=== PATIENT | male | born 1950 | race Caucasian/White ===

== ENCOUNTER 2017-02-10 17:34 | Inpatient (IN) | payer BC ==
[2017-02-10 18:26] LABS: Hematocrit 53.9 % (42.0-52.0); Mean Platelet Volume 7.7 fL (7.4-10.4); Red Blood Cell (RBC) Count 6.06 mill/uL (4.70-6.10); White Blood Cell (WBC) Count 8.6 thou/uL (4.8-10.8)
[2017-02-10 18:43] LABS: ALT (SGPT) 20 U/L (8-55); AST (SGOT) 20 U/L (5-34); Alkaline Phosphatase 114 U/L (40-150); Anion Gap 18 mmol/L (10-20); BUN (Urea Nitrogen) 35 mg/dL (8.4-25.7); Bilirubin, Total 1.3 mg/dL (0.2-1.2); Calc. Creatinine Clearance 0 mL/min (70-130); Calcium 9.3 mg/dL (7.8-10.44); Carbon Dioxide 22 mmol/L (23-31); Chloride 86 mmol/L (98-107); Estimated GFR-MDRD 54; Globulin 3.9 g/dL (2.4-3.5); Lipase 18 U/L (8-78)
[2017-02-10] MEDS ORDERED: Ondansetron HCl/PF 4 MG/2 ML Vial ONE (18:47)
[2017-02-10 18:52] LABS: Band 35 % (5-11); Neutrophil 49 % (42-75); Reactive Lymphocytes 1 % (0-10)
[2017-02-10] MEDS ORDERED: Potassium Chloride 20 MEQ TAB ONE (19:18)
[2017-02-10 19:49] LABS: Bilirubin Small (Negative); Blood, Urine Trace (Negative); Glucose, Urine (Dipstick) 100 mg/dL (Negative); Ketone, Urine Negative (Negative); Nitrite Negative (Negative); Protein, Urine (Dipstick) 100 mg/dL (Neg-Trace); Urobilinogen 0.2 mg/dL (0.2-1.0)
[2017-02-10 19:52] LABS: Bacteria/HPF None Seen HPF (None Seen)
[2017-02-10 19:55] LABS: Hyaline Casts/LPF 0-3 HYALINE CAST LPF (0-3 Hyaline); Renal Epithelial None Seen HPF (0-3); Transitional Epithelial NONE SEEN HPF (0-3)
--- NOTE | 2017-02-10 21:43 | CT ---
CT ABDOMEN AND PELVIS WITHOUT CONTRAST STONE PROTOCOL 02/10/17 HISTORY: Pain. COMPARISON: None. FINDINGS: There is some peripheral reticular scarring in the lung bases. Calcified granuloma is also present in the right lung base. No significant pericardial effusion. The appendix is visualized and is normal. IMPRESSION: There is mild submucosal fatty infiltration of the ascending colon. There was mild hyperemia of the t ransverse colon. Faint inflammatory stranding around the ascending colon. There were no dilated large or small bowel. There is increased number of mesenteric lymph nodes. There was no hydronephrosis. Th ere is a punctate calculus in the superior pole left kidney. This is nonobstructive. Calcified granuloma is present in the spleen. Liver, pancreas, and gallbladder are unremarkable given noncontrast evaluation. No severe facet arthropathy L4-5 and L5-S1. IMPRESSION: 1. Nonobstructive superior left renal calculus which is punctate. 2. Findings suggestive of chronic inflammatory bowel disease including submucosal fatty infiltra tion of the cecum and ascending colon as well as hyperemia of the transverse colon and mild inflammat ory stranding of the ascending colon. Active colitis is likely. 3. Likely reactive numerous mesenteric lymph nodes. 4. Normal appendix. POS: H
[2017-02-10] MEDS ORDERED: Ciprofloxacin 500 MG TAB ONE (23:02)
[2017-02-10] MEDS ORDERED: metroNIDAZOLE 250 MG TAB ONE (23:02)
[2017-02-11] MEDS ORDERED: Ondansetron HCl/PF 4 MG/2 ML Vial IVP PRN (00:13)
[2017-02-11] MEDS ORDERED: Ondansetron ODT 4 MG TAB SL PRN (00:13)
[2017-02-11] MEDS ORDERED: Dicyclomine 20 MG TAB PO PRN (00:13)
[2017-02-11] MEDS ORDERED: Potassium Chloride 20 MEQ TAB PO SCH (00:30)
[2017-02-11] MEDS ORDERED: HYDROcodone/Acetaminophen 5/325 mg Tablet PO PRN (00:56)
[2017-02-11] MEDS ORDERED: Acetaminophen 325 MG TAB PO PRN (00:56)
--- NOTE | 2017-02-11 00:56 | PDOC.EVN ---
Event Note - Event Note Event Note: [id number] H&P Dictated 1. Acute colitis 2. Hyponatremia 3. HYPOKALEMIA PLAN: SEE ORDERS
[2017-02-11] MEDS ORDERED: Sodium Chloride 0.9% 1,000 ML IV SCH (01:00)
[2017-02-11] MEDS: NS 0.9% w/ 20 MEQ KCL 1,000 ML IV SCH ×4 (01:13→23:40)
[2017-02-11] MEDS: Meropenem 1 GM in Sodium Chloride 0.9% 100 ML IVPB SCH ×3 (04:31→21:03)
[2017-02-11 05:23] LABS: Anion Gap 12 mmol/L (10-20); BUN (Urea Nitrogen) 28 mg/dL (8.4-25.7); Calc. Creatinine Clearance 34 mL/min (70-130); Calcium 8.4 mg/dL (7.8-10.44); Carbon Dioxide 25 mmol/L (23-31); Chloride 93 mmol/L (98-107); Estimated GFR-MDRD 59
[2017-02-11 06:06] LABS: Band 25 % (5-11); Hematocrit 49.5 % (42.0-52.0); Neutrophil 39 % (42-75); Red Blood Cell (RBC) Count 5.53 mill/uL (4.70-6.10)
[2017-02-11] MEDS: Heparin 5,000 UNITS/ML VIAL SC SCH ×3 (08:39→20:57)
[2017-02-11] MEDS: Famotidine 20 MG TAB PO SCH ×2 (08:39→20:57)
[2017-02-11] MEDS ORDERED: FLU VACC QS2017-18 36 mo. & older 0.5 ML SYRINGE IM ONE (09:00)
[2017-02-11 09:17] LABS: Anion Gap 12 mmol/L (10-20); BUN (Urea Nitrogen) 25 mg/dL (8.4-25.7); Calc. Creatinine Clearance 83 mL/min (70-130); Calcium 8.7 mg/dL (7.8-10.44); Carbon Dioxide 26 mmol/L (23-31); Chloride 94 mmol/L (98-107); Estimated GFR-MDRD 69
--- NOTE | 2017-02-11 12:55 | HP ---
DATE OF ADMISSION: 02/11/2017 CHIEF COMPLAINT: Abdominal pain, nausea, vomiting, diarrhea. HISTORY OF PRESENT ILLNESS: The patient is a 66-year-old male with past medical history of GERD, now came to the ER with nausea, vomiting, diarrhea. Symptoms started approximately a few days back sinc e Thursday. The pain is in mainly lower abdomen, a crampy kind of pain associated with nausea, vomitin g, and diarrhea numerous episodes. Denies any blood in the stool. Denies any black stool. Denies f ever, denies any chills, denies any chest pain, denies any trouble breathing. Denies any dizziness, denies lightheadedness. PAST MEDICAL HISTORY: As per HPI. PAST SURGICAL HISTORY: None. SOCIAL HISTORY: Positive for smoking. Occasional alcohol use and drugs. FAMILY HISTORY: Denies any heart problems. MEDICATIONS: Reviewed. ALLERGIES: No known drug allergies. REVIEW OF SYSTEMS: Constitutional: Denies any fever, denies any chills. Eyes: Denies vision probl ems. Ears: Denies hearing loss. Neck: Denies any neck pain. Cardiovascular system: Denies any c hest pain. Respiratory system: Denies any cough. Denies any sputum production. Gastrointestinal: Positive for abdominal pain, nausea, vomiting, and diarrhea. Cranial nerve system: Denies syncope. Psychiatric: Denies anxiety. Integumentary: Denies any rash. Musculoskeletal: Denies any joint deformities. All other review of systems are reviewed and are negative. PHYSICAL EXAMINATION: VITAL SIGNS: At the time of H&P performed, blood pressure is 120/70, afebrile, pulse ox 95%, tempera ture 97.7. GENERAL: The patient appears comfortable. HEENT: Pupils are equal, round, and reactive. Anterior nares normal. Nose, normal. Ears, normal. Teeth, intact. Tongue is moist. NECK: Supple, no JVD. CARDIOVASCULAR SYSTEM: S1, S2 present. Regular rate and rhythm. No murmurs, no rubs, no gallops. RESPIRATORY SYSTEM: No wheezing, no rhonchi. Breath sounds present bilaterally. GASTROINTESTINAL: Tender to palpate lower abdomen. No guarding, no rebound tenderness. Soft, diste nded. CRANIAL NERVE SYSTEM: Awake, follows commands. Strength intact. Sensory intact. PSYCHIATRIC: Mood is appropriate at this time.. MUSCULOSKELETAL: No edema. INTEGUMENTARY: No rashes seen. LABORATORY DATA: At the time of H&P performed, sodium 123, potassium 2.7, chloride 86, CO2 of 22, BU N of 35, creatinine 1.34. White count 8.6, hemoglobin 18.3, platelet count is 259. UA is 7-10 rbc's , 7-10 wbc's. IMAGING: CT abdomen and pelvis done in the ER, positive for nonobstructing superior left renal calcu sotero finding suggestive of chronic inflammatory bowel disease, active colitis is less likely. ASSESSMENT AND PLAN: The patient is 66-year-old male, 1. Acute colitis. Plan to consult GI to evaluate the patient. Plan to keep the patient on IV Cipro and Flagyl. We will monitor patient closely. 2. Hyponatremia secondary to hypovolemia. Gentle IV fluids, repeat BMP in 6 hours. 3. Hypokalemia. Replace potassium. 4. Pain p.r.n. pain medications. 5. Gastroesophageal reflux disease, PPI. 6. Nausea, vomiting, diarrhea. We will check stool for clostridium difficile. Continue patient on p.r.n. antiemetics and continue IV fluids. The case was discussed in detail with the patient.
--- NOTE | 2017-02-11 14:13 | PDOC.EVN ---
Event Note - Event Note Event Note: pt seen and [id number]. chart reviewed. admitted earlier today for AP and diarrhea with colitis type findings on CT and multiple electrolyte abnormalities. feels much better now. still having loose stools. CTA b/l. RRR. abdomen is non tender. C.Diff negative.CT scan findings noted.? chronic IBD.Pt gives no history or FH of same. On empiric ABX. Cont same .GI recs requested. follow lytes closely and replace as needed.
[2017-02-11 16:25] LABS: Anion Gap 14 mmol/L (10-20); BUN (Urea Nitrogen) 22 mg/dL (8.4-25.7); Calc. Creatinine Clearance 90 mL/min (70-130); Calcium 8.8 mg/dL (7.8-10.44); Carbon Dioxide 24 mmol/L (23-31); Chloride 95 mmol/L (98-107); Estimated GFR-MDRD 76
--- NOTE | 2017-02-12 04:58 | CON ---
DATE OF CONSULTATION: 02/11/2017 CHIEF COMPLAINT: Diarrhea. HISTORY OF PRESENT ILLNESS: Mr. Shen is a 66-year-old man who had onset of liquidy diarrhea on following Thanksgiving. This gradually worsened and he had diarrhea episodes every hour over the n ext couple of days. He ultimately developed nausea and vomiting and then came on into the emergency room for further care. He was given antibiotics. A CT scan was performed that showed some inflammat ory changes around the colon. He is feeling much better today. His nausea has resolved. The diarrh ea is still persistent, but he is having no abdominal pain. His son and [id number] also got sic k who ate the same meal as did his lady friend. PAST MEDICAL HISTORY: Gastroesophageal reflux. PAST SURGICAL HISTORY: Negative. FAMILY HISTORY: Negative for GI malignancies. SOCIAL HISTORY: He smokes, occasional alcohol, no drugs. ALLERGIES: No known drug allergies. MEDICATIONS PRIOR TO ADMISSION: None. CURRENT INPATIENT MEDICATIONS: Meropenem, famotidine. REVIEW OF SYSTEMS: Negative x10 systems reviewed except as stated in the history of present illness. PHYSICAL EXAMINATION: VITAL SIGNS: Temperature 98.0, pulse 78, blood pressure 126/76. GENERAL: He is in no acute distress, alert, and oriented x3. HEENT: Eyes have no scleral icterus. Oropharynx is clear, without lesions. NECK: No cervical or supraclavicular lymphadenopathy. LUNGS: Clear to auscultation bilaterally. HEART: Regular rate and rhythm. ABDOMEN: Soft, nontender, nondistended, bowel sounds are present, no hepatomegaly. EXTREMITIES: No lower extremity edema. LABORATORY DATA: White blood cell count is 9.0, hemoglobin 16.5, platelets 239, hemoglobin on presen tation was 18.3 prior to hydration. Sodium 129, potassium 3.5, chloride 95, CO2 is 24, BUN 22, creat inine 0.99 down from 1.34 on presentation, albumin 4.1, lipase 18. Bilirubin on presentation was 1.3 , AST 20, ALT 20, alkaline phosphatase 114. IMPRESSION: Acute infectious colitis. He has already been on meropenem and is several days into the course of the infection and therefore, stool studies are not likely to come back positive. We shoul d check a culture for completeness sake. This could be Campylobacter, Shigella, salmonella, or E. co li versus other. RECOMMENDATIONS: 1. Complete a 5-day course of antibiotics and then they can be discontinued. 2. Advanced to solid diet tomorrow. 3. Check stool studies for culture and ova and parasite. 4. Follow up in GI clinic in a month. PLAN: Colonoscopy around 6 weeks after the acute infectious processes healed. The colonoscopy will be for routine screening.
[2017-02-12 05:05] LABS: Anion Gap 11 mmol/L (10-20); BUN (Urea Nitrogen) 15 mg/dL (8.4-25.7); Calc. Creatinine Clearance 105 mL/min (70-130); Calcium 8.2 mg/dL (7.8-10.44); Carbon Dioxide 24 mmol/L (23-31); Chloride 99 mmol/L (98-107); Estimated GFR-MDRD Greater than 90
[2017-02-12] MEDS: Meropenem 1 GM in Sodium Chloride 0.9% 100 ML IVPB SCH (05:58)
[2017-02-12] MEDS ORDERED: Dextrose 5% in Water 1,000 ML IV PRN (07:20)
[2017-02-12] MEDS ORDERED: HumaLOG 300 UNITS/3 ML VIAL SC PRN ×2 (07:20)
[2017-02-12] MEDS ORDERED: Dextrose 50% Abboject 50 ML SYRINGE SLOW IVP PRN (07:20)
[2017-02-12 07:41] LABS: Hemoglobin A1c 7.6 % (4.0-6.0)
[2017-02-12 07:46] LABS: Magnesium 2.3 mg/dL (1.6-2.6)
[2017-02-12 07:49] LABS: Phosphorus 1.4 mg/dL (2.3-4.7)
[2017-02-12] MEDS: Famotidine 20 MG TAB PO SCH ×2 (08:55→20:28)
[2017-02-12] MEDS: Heparin 5,000 UNITS/ML VIAL SC SCH ×3 (08:55→20:28)
--- NOTE | 2017-02-12 09:26 | PDOC.PN ---
- Subjective Encounter Start Date: 02/12/17 Encounter Start Time: 07:30 -: old records requested/rev pt still has diarrhoea, no fever, no abdominal pain Patient seen and examined. No new complaints. No overnight events - Objective Resuscitation Status: Resuscitation Status FULL:Full Resuscitation MAR Reviewed: Yes Vital Signs & Weight: Vital Signs (12 hours) Temp Pulse Resp BP Pulse Ox 02/12/17 04:00 98.0 F 69 18 120/64 98 Weight Admit Weight 186 lb 6.4 oz Weight 188 lb 8 oz I&O: 02/11/17 02/12/17 02/13/17 06:59 06:59 06:59 Intake Total 765 1820 Balance 765 1820 Result Diagrams: 02/11/17 04:55 02/12/17 04:25 EKG Reviewed by me: Yes Phys Exam - Physical Examination Constitutional: NAD HEENT: PERRLA, moist MMs, sclera anicteric Neck: no JVD, supple Respiratory: no wheezing, no rales, no rhonchi Cardiovascular: RRR, no significant murmur, no rub Gastrointestinal: soft, non-tender, no distention, positive bowel sounds Musculoskeletal: no edema, pulses present Neurological: non-focal, normal sensation Lymphatic: no nodes Psychiatric: normal affect Skin: no rash, normal turgor Dx/Plan (1) Acute kidney failure Status: Acute (2) Bandemia Code(s): D72.825 - BANDEMIA Status: Acute (3) Colitis, infectious Code(s): A09 - INFECTIOUS GASTROENTERITIS AND COLITIS, UNSPECIFIED Status: Acute (4) Dehydration Code(s): E86.0 - DEHYDRATION Status: Acute (5) Hypokalemia Code(s): E87.6 - HYPOKALEMIA Status: Acute (6) Hyponatremia Code(s): E87.1 - HYPO-OSMOLALITY AND HYPONATREMIA Status: Acute (7) Hypophosphatemia Code(s): E83.39 - OTHER DISORDERS OF PHOSPHORUS METABOLISM Status: Acute - Plan cont current plan of care, continue antibiotics * repeat labs tomorrow * replace potassium phosphate * continue selected home medication. * medication reviewed as below * symptomatic treatment * start IV flagyl. * change IVF to NS with KCL * DC Meropenam and change to levaquin Review of Systems - Review of Systems Constitutional: negative: Fever, Chills, Sweats, Weakness, Malaise, Other Eyes: negative: Pain, Vision Change, Conjunctivae Inflammation, Eyelid Inflammation, Redness, Other ENT: negative: Ear Pain, Ear Discharge, Nose Pain, Nose Discharge, Nose Congestion, Mouth Pain, Mouth Swelling, Throat Pain, Throat Swelling, Other Respiratory: negative: Cough, Dry, Shortness of Breath, Hemoptysis, SOB with Excertion, Pleuritic Pain, Sputum, Wheezing Cardiovascular: negative: Chest Pain, Palpitations, Orthopnea, Paroxysmal Noc. Dyspnea, Edema, Light Headedness, Other Gastrointestinal: Abdominal Pain, Diarrhea. negative: Nausea, Vomiting, Constipation, Melena, Hematochezia, Other Genitourinary: negative: Dysuria, Frequency, Incontinence, Hematuria, Retention , Other Musculoskeletal: negative: Neck Pain, Shoulder Pain, Arm Pain, Back Pain, Hand Pain, Leg Pain, Foot Pain, Other Skin: negative: Rash, Lesions, Francisco, Bruising, Other - Medications/Allergies Allergies/Adverse Reactions: Allergies Allergy/AdvReac Type Severity Reaction Status Date / Time No Known Drug Allergies Allergy Verified 02/11/17 03:57 Medications: Current Medications Acetaminophen (Tylenol) 650 mg PO Q4H PRN PRN Reason: Headache/Fever or Pain Hydrocodone Bitart/Acetaminophen ([place] 5/325) 1 tab PO Q4H PRN PRN Reason: Moderate Pain (4-6) Dextrose/Water (Dextrose 50%) 25 gm SLOW IVP PRN PRN PRN Reason: Hypoglycemia Famotidine (Pepcid) 20 mg PO BID [facility] Last Admin: 02/12/17 08:55 Dose: 20 mg Glucagon (Glucagon) 1 mg IM PRN PRN PRN Reason: Hypoglycemia Heparin Sodium (Porcine) (Heparin) 5,000 units SC TID [facility] Last Admin: 02/12/17 08:55 Dose: 5,000 units Potassium Chloride/Sodium Chloride (Ns 0.9% W/ 20 Meq Kcl) 1,000 mls @ 100 mls/ hr IV .Q10H [facility] Stop: 02/15/17 10:35 Last Admin: 02/11/17 23:40 Dose: 1,000 mls Meropenem 1 gm/ Sodium (Chloride) 100 mls @ 200 mls/hr IVPB Q8HR [facility] Last Admin: 02/12/17 05:58 Dose: 100 mls Dextrose/Water (D5w) 1,000 mls @ 0 mls/hr IV .Q0M PRN; As Directed PRN Reason: Hypoglycemia Insulin Human Lispro (Humalog) 0 units SC .MODERATE SLIDING SC PRN PRN Reason: Moderate Correctional Scale Insulin Human Lispro (Humalog) 0 units SC .BEDTIME SLIDING SC PRN PRN Reason: Bedtime Correctional Scale Ondansetron HCl (Zofran) 4 mg IVP Q6H PRN PRN Reason: Nausea/Vomiting Stop: 02/16/17 10:35 Sodium Chloride (Flush - Normal Saline) 10 ml IVF Q12HR KEON Last Admin: 02/12/17 08:55 Dose: 10 ml Sodium Chloride (Flush - Normal Saline) 10 ml IVF PRN PRN PRN Reason: Saline Flush
[2017-02-12] MEDS ORDERED: Potassium Phosphate 30 MMOL in Sodium Chloride 0.9% 500 ML IVPB SCH (10:00)
[2017-02-12] MEDS: NS 0.9% w/ 20 MEQ KCL 1,000 ML/1,000 ML BAG IV SCH ×2 (11:18→20:29)
[2017-02-12] MEDS: K-Phos Neutral 250 MG TAB PO SCH ×2 (15:13→18:01)
--- NOTE | 2017-02-12 17:17 | PRG ---
DATE OF SERVICE: 02/12/2017 SUBJECTIVE: He feels better. He has no abdominal pain. He is tolerating a solid diet. He is still having frequent diarrhea. OBJECTIVE: VITAL SIGNS: Temperature 98.6, pulse 69, blood pressure 110/57. GENERAL: He is in no acute distress, alert and oriented x3. LUNGS: Clear to auscultation bilaterally. HEART: Regular rate and rhythm. ABDOMEN: Soft, nontender, nondistended. Bowel sounds are present. EXTREMITIES: No lower extremity edema. IMPRESSION: Acute infectious colitis. Stool studies are negative; however, this is expected given t hat they were drawn several days after the onset of symptoms and after several days of antibiotics. The diarrhea now might be worsened by the antibiotics. He can complete a 5-day course of antibiotics and then discontinue them. Now, he is tolerating oral diet and can be transitioned to ciprofloxacin 500 mg twice daily. RECOMMENDATIONS: 1. Transitioned to oral antibiotics to complete a 5-day course. 2. Add Probiotic daily. 3. Anticipate discharge home tomorrow. 4. Follow up in GI clinic in a month. He will need colonoscopy at that time for screening and follo wup. I will sign off for now. Please call if GI can help.
[2017-02-12] MEDS: Loperamide HCl 2 MG CAP PO PRN (18:03)
[2017-02-12 21:42] VITALS: BMI 27.7
[2017-02-13] MEDS: Loperamide HCl 2 MG CAP PO PRN (00:10)
[2017-02-13 05:27] LABS: Band 6 % (5-11); Hematocrit 47.8 % (42.0-52.0); Mean Platelet Volume 7.3 fL (7.4-10.4); Metamyelocyte 1 % (0-0); Myelocyte 1 % (0-0); Neutrophil 48 % (42-75); Nucleated RBC 1 % (0); Red Blood Cell (RBC) Count 5.32 mill/uL (4.70-6.10); White Blood Cell (WBC) Count 9.7 thou/uL (4.8-10.8)
[2017-02-13 05:40] LABS: ALT (SGPT) 40 U/L (8-55); AST (SGOT) 45 U/L (5-34); Alkaline Phosphatase 109 U/L (40-150); Anion Gap 10 mmol/L (10-20); BUN (Urea Nitrogen) 11 mg/dL (8.4-25.7); Bilirubin, Total 0.8 mg/dL (0.2-1.2); Calc. Creatinine Clearance 111 mL/min (70-130); Calcium 8.5 mg/dL (7.8-10.44); Carbon Dioxide 24 mmol/L (23-31); Chloride 99 mmol/L (98-107); Estimated GFR-MDRD Greater than 90; Globulin 2.9 g/dL (2.4-3.5); Protein, Total 6.4 g/dL (5.8-8.1)
[2017-02-13] MEDS ORDERED: Floranex Packet PO SCH (09:00)
[2017-02-13] MEDS ORDERED: Potassium Chloride 20 MEQ TAB PO SCH (09:30)
[2017-02-13] MEDS: Famotidine 20 MG TAB PO SCH (09:54)
[2017-02-13] MEDS: Heparin 5,000 UNITS/ML VIAL SC SCH (09:54)
[2017-02-13 11:02] VITALS: BP 124/71; TEMP 98.5
--- NOTE | 2017-02-13 12:36 | DIS ---
PRIMARY CARE PROVIDER: Dr. Nghia Salvador. DATE OF ADMISSION: 02/11/2017 DATE OF DISCHARGE: 02/13/2017 DISCHARGE DIAGNOSES: 1. Acute colitis, likely infectious. 2. Hypokalemia. 3. Hypophosphatemia. 4. Hyponatremia. CONDITION OF PATIENT AT THE TIME OF DISCHARGE: Stable. I assessed Mr. Shen on the day of discharge. He denies any chest pain or shortness of breath. Vital signs are stable. S1 and S2 are heard, reg ular. Lungs are clear to auscultation bilaterally. CONSULTATIONS DURING THIS HOSPITALIZATION: Dr. Farhat Dawn, Gastroenterology. DISCHARGE MEDICATIONS: Floranex 1 g daily for 5 days, Levaquin 500 mg daily for 3 more days, Imodium p.r.n., Phos-NaK 1 packet every 12 hours for 3 more days. HOSPITAL COURSE: Mr. Shen is a pleasant 66-year-old gentleman, who was admitted to [facility] on 02/10/2017 for diarrhea of a few days' duration. CT scan of the abdomen and pelv is done on 02/10/2017, showed a nonobstructive superior left renal calculus and findings suggestive o f chronic inflammatory bowel disease including submucosal fatty infiltration of the cecum and ascendi ng colon as well as hyperemia of the transverse colon and mild inflammatory stranding of the ascendin g colon, normal appendix and likely reactive numerous mesenteric lymph nodes. He was seen by Gastroe nterology Service. He was treated with antibiotics for possible infectious colitis. Clostridium dif ficile screen was negative. Rapid parasite stool screen was negative for Giardia and cryptosporidium . Campylobacter antigen and test for E. coli, Shiga toxin 1 and 2 were negative. Preliminary stool culture did not show growth. He is advised to follow up with his primary care provider for final rep ort. He was found to be hyponatremic, hypokalemic and hypophosphatemic during this hospitalization. On the day of discharge, his sodium of 130, potassium 3.3, creatinine 0.81, phosphorous 1.6, AST 45, ALT 40, normal alkaline phosphatase, normal total bilirubin, unremarkable comprehensive metabolic pro file. He is in the process of switching insurances. He will reportedly see Dr. Nghia Salvador as an outpatien t. His diarrhea resolved on the day of discharge. Many thanks for allowing me to participate in your patient's care. Please feel free to contact me wi th any questions or concerns. He was also started on probiotics during this hospitalization. DISCHARGE DESTINATION: Home. TOTAL AMOUNT OF TIME SPENT COORDINATING THIS DISCHARGE: 33 minutes.
[2017-02-13] MEDS: NS 0.9% w/ 20 MEQ KCL 1,000 ML/1,000 ML BAG IV SCH (13:15)
== END 2017-02-13 13:39 | disposition home or self-care (01) | DRG 392 ==
LOC: ERS 17:34 → 2NO 02-11 00:07
PROVIDERS: ADMIT Internal Medicine; ATTEND Internal Medicine
DX: A09 Infectious gastroenteritis and colitis, unspecified (principal); N17.9 Acute kidney failure, unspecified; E87.1 Hypo-osmolality and hyponatremia; E83.39 Other disorders of phosphorus metabolism; E87.6 Hypokalemia; K21.9 Gastro-esophageal reflux disease without esophagitis; D72.825 Bandemia
CPT/HCPCS: 36415; 36416; 74176; 80048; 80053; 81003; 81015; 83036; 83690; 83735; 84100; 85025; 87015; 87045; 87046; 87324; 87328; 87329; 87449; 87899; 93005; A4216; J1644; J1956; J2185; J2405; J7050

== ENCOUNTER 2017-03-16 02:53 | Inpatient (IN) | payer MEDICARE ==
[2017-03-16] MEDS ORDERED: Nitroglycerin 2% Ointment 1 INCH/1 GM Packet ONE (03:14)
[2017-03-16 03:23] LABS: #Basophils 0.1 thou/uL (0.0-0.2); #Eosinphils 0.1 thou/uL (0.0-0.7); #Lymphocytes 2.1 thou/uL (1.20-3.40); #Neutrophils 8.5 thou/uL (1.40-6.50); %Basophils 0.5 % (0.0-1.0); %Eosinophils 0.9 % (0.0-10.0); %Monocytes 8.2 % (0.0-10.0); %Neutrophils 72.4 % (42.0-75.0); Hemoglobin 16.4 g/dL (14.0-18.0); Mean Corpuscular HGB CONC 32.9 g/dL (32.0-36.0); Mean Corpuscular Hemoglobin 30.4 pg (27.0-31.0); Mean Corpuscular Volume 92.4 fl (80.0-94.0); Mean Platelet Volume 7.3 fL (7.4-10.4); Platelet Count 292 thou/uL (130-400); RBC Distribution Width 13.6 % (11.5-14.5); Red Blood Cell (RBC) Count 5.39 mill/uL (4.70-6.10); White Blood Cell (WBC) Count 11.7 thou/uL (4.8-10.8)
[2017-03-16 03:41] LABS: ALT (SGPT) 14 U/L (8-55); AST (SGOT) 18 U/L (5-34); Albumin 4.2 g/dL (3.4-4.8); Alkaline Phosphatase 102 U/L (40-150); Anion Gap 16 mmol/L (10-20); BUN (Urea Nitrogen) 13 mg/dL (8.4-25.7); Bilirubin, Total 0.3 mg/dL (0.2-1.2); CK (CPK) 160 U/L (30-200); Calc. Creatinine Clearance 0 mL/min (70-130); Calcium 9.9 mg/dL (7.8-10.44); Carbon Dioxide 24 mmol/L (23-31); Chloride 100 mmol/L (98-107); Estimated GFR-MDRD 71; Globulin 3.3 g/dL (2.4-3.5); Glucose 270 mg/dL (80-115); Magnesium 2.4 mg/dL (1.6-2.6); Potassium 4.3 mmol/L (3.5-5.1); Protein, Total 7.5 g/dL (5.8-8.1); Sodium 136 mmol/L (136-145)
[2017-03-16 03:44] LABS: CKMB 3.8 ng/mL (0-6.6); Troponin I 0.041 ng/mL (< 0.028)
[2017-03-16] MEDS ORDERED: Enoxaparin Sodium 80 MG/0.8 ML SYRINGE ONE (05:17)
[2017-03-16] MEDS ORDERED: Ondansetron ODT 4 MG TAB SL PRN (06:10)
[2017-03-16] MEDS ORDERED: Ondansetron HCl/PF 4 MG/2 ML Vial IVP PRN (06:10)
[2017-03-16] MEDS ORDERED: Acetaminophen 325 MG TAB PO PRN (06:10)
[2017-03-16 06:19] VITALS: BMI 29.0
[2017-03-16 08:02] LABS: Troponin I 1.224 ng/mL (< 0.028)
[2017-03-16] MEDS ORDERED: HumaLOG 300 UNITS/3 ML VIAL SC PRN (10:03)
[2017-03-16] MEDS ORDERED: Dextrose 50% Abboject 50 ML SYRINGE IVP PRN (10:03)
[2017-03-16] MEDS ORDERED: Dextrose 5% in Water 1,000 ML IV PRN ×2 (10:03→10:21)
[2017-03-16 10:05] LABS: Hemoglobin A1c 7.2 % (4.0-6.0)
[2017-03-16] MEDS ORDERED: Milk Of Magnesia 30 ML UDCUP PO PRN (10:21)
[2017-03-16] MEDS ORDERED: Dextrose 50% Abboject 50 ML SYRINGE SLOW IVP PRN (10:21)
[2017-03-16] MEDS ORDERED: Loperamide HCl 2 MG CAP PO PRN (10:21)
[2017-03-16] MEDS ORDERED: HYDROcodone/Acetaminophen 7.5/325 mg Tablet PO PRN (10:21)
[2017-03-16] MEDS ORDERED: Guaifenesin DM 100-10/5 ML UDCUP PO PRN (10:21)
[2017-03-16] MEDS ORDERED: hydrALAZINE 20 MG/ML VIAL SLOW IVP PRN (10:25)
[2017-03-16] MEDS ORDERED: Labetalol HCl 100 MG/20 ML VIAL SLOW IVP PRN (10:25)
[2017-03-16] MEDS ORDERED: Benzonatate 100 MG CAP PO PRN (10:25)
[2017-03-16] MEDS ORDERED: diphenhydrAMINE 50 MG/ML VIAL IVP PRN (10:25)
[2017-03-16] MEDS ORDERED: Nitroglycerin 0.4 MG TAB (25 Tab Bottle) SL PRN (10:27)
[2017-03-16 10:30] LABS: Troponin I 1.788 ng/mL (< 0.028)
[2017-03-16] MEDS: Insulin Detemir 100 UNITS/ML 5 UNITS in Pre-Filled Syringe 1 EACH SC SCH (11:06)
--- NOTE | 2017-03-16 12:00 | HP ---
DATE OF ADMISSION: 03/16/2017 REASON FOR CONSULTATION: Chest pain. HISTORY OF PRESENT ILLNESS: A 66-year-old male with past medical history of GERD and no significant followup with medical care, who came to the hospital last night with chest pain, reportedly the chest pain started in the morning. When he was watching television, he felt like retrosternal pain, feels like elephant sitting on his chest and also radiating to both arms. He denies any nausea, vomiting, sweating, shortness of breath related to that. He does not have regular followup with primary care. He smokes 1 pack per day and he admits to using illicit drugs including marijuana occasionally and occasional alcohol use. No fever or chills. No skin rash. No history of any cardiac workup done in the past. He was recently admitted to the hospital with colitis. PAST MEDICAL HISTORY: Positive for GERD. PAST SURGICAL HISTORY: Denies any surgeries. HOME MEDICATIONS: Ranitidine p.r.n. and some [id number]. ALLERGIES: No known drug allergies. SOCIAL HISTORY: She smokes 1 pack per day. Illicit drug abuse, use including marijuana. Occasional beer user. FAMILY HISTORY: Denies any cardiac history in the family. REVIEW OF SYSTEMS: The following complete review of systems was negative, unless otherwise mentioned in the HPI or below: Constitutional: Weight loss or gain, ability to conduct usual activities. Sk in: Rash, itching. Eyes: Double vision, pain. ENT/Mouth: Nose bleeding, neck stiffness, pain, te nderness. Cardiovascular: Palpitations, dyspnea on exertion, orthopnea. Respiratory: Shortness of breath, wheezing, cough, hemoptysis, fever or night sweats. Gastrointestinal: Poor appetite, abdom inal pain, heartburn, nausea, vomiting, constipation, or diarrhea. Genitourinary: Urgency, frequenc y, dysuria, nocturia. Musculoskeletal: Pain, swelling. Neurologic/Psychiatric: Anxiety, depressio n. Allergy/Immunologic: Skin rash, bleeding tendency. CODE STATUS: FULL. PHYSICAL EXAMINATION: GENERAL: This is a well-built white male in no apparent distress. VITAL SIGNS: Temperature 98.6, pulse 70, respirations 16, blood pressure 106/60. HEENT: Atraumatic, normocephalic. Oral mucosa is moist. NECK: Supple. HEART: S1, S2 heard. Rate and rhythm regular. Normal systolic murmur heard. RESPIRATORY: Clear to auscultation anteriorly and posteriorly. ABDOMEN: Soft. MUSCULOSKELETAL: No tenderness. No edema. DERMATOLOGIC: No skin rash. NEUROLOGIC: Alert, awake, moving all the extremities. No focal neurologic deficits. PSYCHIATRIC: Mood and affect normal. LABORATORY DATA: Hemoglobin 16.4, potassium is 4.3, troponin was 0.04, up to 1.7. EKG: Nonspecific changes. Chest x-ray was unremarkable. ASSESSMENT AND PLAN: 1. Non-ST elevation myocardial infarction. Cardiology will be counseled and will continue on Loveno x and beta gaby added by Cardiology and further decisions will be based on the clinical course, he does have a troponin pending at 10:00. 2. Chest pain as above. 3. History of tobacco abuse, counseled. 4. New onset diabetes. A1c is slightly elevated. We will start on Levemir and sliding scale insuli n and will transition to oral medications as tolerated. 5. Substance abuse. The patient will be counseled. 6. Gout. We will continue on GI prophylaxis. 7. DVT prophylaxis, SCDs and currently on Lovenox full dose. 8. Pain control - home medications as tolerated. 9. CODE STATUS: FULL. 10. Will follow up with Cardiology for further plans. The patient will meet inpatient criteria and was admitted for 2-3 days. We will monitor closely. The patient will be kept n.p.o. until next draw of troponin. We will also check TSH and lipid panel and liver function tests for the morning. Echo will be done too. We will follow.
--- NOTE | 2017-03-16 12:08 | RAD ---
RADIOGRAPH CHEST 1 VIEW: HISTORY: A 66-year-old male with sudden onset of chest pain. FINDINGS: There are no air space densities, pulmonary edema, pneumothorax, or cardiomegaly. The lateral costop hrenic angles are sharp. There are prominent interstitial markings in the bilateral lower lung zones , favored to be chronic. IMPRESSION: 1. No acute cardiopulmonary findings. 2. Probably chronic interstitial densities. debra Madison POS: RAFAL
[2017-03-16 13:31] LABS: Troponin I 1.835 ng/mL (< 0.028)
--- NOTE | 2017-03-16 16:55 | CON ---
DATE OF CONSULTATION: 03/16/2017 CARDIOLOGY CONSULTATION CONSULTING PHYSICIAN: Yoan Hill M.D. INDICATION FOR CONSULTATION: Chest pain with abnormal cardiac enzymes. HISTORY OF PRESENT ILLNESS: This is a 66-year-old gentleman who has no previous cardiac history. He was seen about a month ago in the hospital due to some GI upset, most likely some type of gastroente ritis. He appears to have some degree at least of diabetes and history of tobacco abuse. He had sto pped smoking for a while and was incarcerated for about 25 years and since being released about 2 yea rs ago has resumed his tobacco abuse about 1 pack a day. According to laboratory data, it appears th at he does have diabetes and this has been untreated. He has not been followed. He says he has not seen a doctor for about 10 years. He was seen in the hospital about a month ago for GI problems as n oted above. At this time, he was at home about 2:00 this morning waiting for son to come home who wo rks nights and he was up sitting watching TV and started having chest pain, 10/10, with radiation to both arms. He also had shortness of breath, but no nausea, vomiting or diarrhea associated with this . No syncope or presyncope. He was seen by EMS, taken to the emergency room and also was given nitr oglycerin and the pain is now resolved. He did not have any acute EKG changes that I can see. He di d have evidence of an incomplete right bundle branch block. He is pain free at this time and appears to be very comfortable. His EKG does show decreased R-wave progression in V1 through V3, but small R waves are present. There is no indication of true myocardial infarction or acute ischemia. Cardia c enzymes are slightly elevated; on admission it was 0.041, it was now increased up to 1.22, MB was 3 .8. PAST MEDICAL HISTORY: Unremarkable for any significant problems except for the recent months ago vis it in which he was in the hospital for GI problems, but no significant operations or illnesses or pre vious hospitalizations they we are aware of. SOCIAL HISTORY: He smoked for the last 2 years. He smoked prior to being incarcerated. He has occa sional alcohol use. FAMILY HISTORY: Noncontributory at this time and it was unremarkable. MEDICATIONS: He was on no medications prior to admission. At this time, he has been started on Love nox and nitroglycerin and since the original doses appear these have been held. ALLERGIES: None. REVIEW OF SYSTEMS: A 12 point review of systems is unremarkable except what was noted in the history of present illness. He has remained active. He walks several blocks a day without symptoms. PHYSICAL EXAMINATION: GENERAL: Reveals an elderly gentleman in no acute distress. VITAL SIGNS: Blood pressure is 129/91, heart rate is 70 and regular, respiratory rate 16. He is afe brile. O2 saturation 95%. HEENT: Shows head to be normocephalic, atraumatic. Carotid pulses are present. I cannot hear any b ruits. There is no JVD noted. The thyroid did not appear to be enlarged. CHEST: He has somewhat decreased breath sounds, but no rales, rhonchi or wheezing are noted. CARDIOVASCULAR: Exam reveals a regular rate and rhythm, normal S1, S2, no S3, S4 noted. There were no significant murmurs, heaves, thrills, bruits or rubs. ABDOMEN: Soft and nontender. Positive bowel sounds are present. No organomegaly or masses are note d. Femoral pulses are present. Pedal pulses are present. SKIN: Warm and dry. NEUROLOGIC: He appears to be normally and intact without any focal deficits. IMAGING DATA AND LABORATORY DATA: His EKG shows a sinus rhythm with no acute changes at this time. Laboratory data as noted above for the troponin I which was abnormal. Blood sugar was 270 and creati nine is 1.05. IMPRESSION: 1. Elevation of the cardiac enzymes which may be due to small non-ST segment elevation myocardial in farction. We will need to continue to trend these to see whether or not it continues to go up toward s. The patient is asymptomatic at this time and has no chest pain. EKG changes are unremarkable. I f they continue to increase, he will need to have a cardiac catheterization. Otherwise, he may need to have stress testing, but most likely it would be best be benefited by a cardiac catheterization as a definitive tool to evaluate for coronary artery disease. We will readdress this after his next se t of enzymes and in the meantime I will continue his Lovenox and will try to start him on medications for low dose beta-gaby. 2. Most likely, patient has diabetes. Elevation of blood sugar 270 will be addressed by the primary care service. 3. History of tobacco abuse. We suggest that he have counseling regarding stopping tobacco abuse. I have suggested already that he stop smoking. We will continue to follow the patient with you. He will be kept n.p.o. after midnight tonight for possible catheterization tomorrow if the enzymes reza nue to increase.
[2017-03-16 18:10] LABS: Critical Call Chem Troponin I RESULT DECREASING
[2017-03-16] MEDS ORDERED: Enoxaparin Sodium 80 MG/0.8 ML SYRINGE SC SCH (21:00)
[2017-03-16] MEDS: Metoprolol Tartrate 25 MG TAB PO SCH (21:00)
[2017-03-16] MEDS: Famotidine 20 MG TAB PO SCH (21:00)
[2017-03-16] MEDS ORDERED: Communication Order-Pharmacy FS SCH (21:45)
--- NOTE | 2017-03-16 21:53 | PDOC.CTH ---
Cardiology Progress Note - Objective Vital Signs Temp Pulse Resp BP Pulse Ox 03/16/17 19:24 97.8 F 70 20 135/69 97 03/16/17 15:08 98.7 F 67 16 103/64 95 03/16/17 11:07 99.0 F 65 20 117/69 96 Weight 196 lb 4.8 oz - Labs Result Diagrams: 03/17/17 05:14 03/17/17 05:15 Troponin/CKMB CK-MB (CK-2) 3.8 ng/mL (0-6.6) 03/16/17 03:06 Troponin I 1.540 ng/mL (< 0.028) H* 03/16/17 17:31 - Assessment/Plan 1. NSTEMI - Cardiac cath on 03/17/17; The patient was explained about the procedure and the risks of the procedure, including, but not limited to, infection, hemorrhage, perforation of the catheter, thrombosis, CVA, RI, allergic reaction to medication, and possible . The patient voiced understanding and agreed to proceed the procedure. The pt will be NPO after MN.
[2017-03-17 05:50] LABS: #Basophils 0.1 thou/uL (0.0-0.2); #Eosinphils 0.1 thou/uL (0.0-0.7); #Lymphocytes 2.6 thou/uL (1.20-3.40); #Monocytes 0.9 thou/uL (0.11-0.59); #Neutrophils 5.1 thou/uL (1.40-6.50); %Basophils 0.9 % (0.0-1.0); %Eosinophils 1.7 % (0.0-10.0); %Lymphocytes 29.3 % (21.0-51.0); %Monocytes 9.8 % (0.0-10.0); %Neutrophils 58.3 % (42.0-75.0); Hemoglobin 16.8 g/dL (14.0-18.0); Mean Corpuscular HGB CONC 32.4 g/dL (32.0-36.0); Mean Corpuscular Hemoglobin 30.2 pg (27.0-31.0); Mean Corpuscular Volume 93.2 fl (80.0-94.0); Mean Platelet Volume 7.5 fL (7.4-10.4); Platelet Count 286 thou/uL (130-400); RBC Distribution Width 13.7 % (11.5-14.5); Red Blood Cell (RBC) Count 5.57 mill/uL (4.70-6.10); White Blood Cell (WBC) Count 8.8 thou/uL (4.8-10.8)
[2017-03-17 05:55] LABS: ALT (SGPT) 16 U/L (8-55); AST (SGOT) 23 U/L (5-34); Albumin 4.1 g/dL (3.4-4.8); Alkaline Phosphatase 99 U/L (40-150); Anion Gap 14 mmol/L (10-20); BUN (Urea Nitrogen) 12 mg/dL (8.4-25.7); Bilirubin, Direct 0.1 mg/dL (0.1-0.3); Bilirubin, Total 0.4 mg/dL (0.2-1.2); Calc. Creatinine Clearance 107 mL/min (70-130); Calcium 9.4 mg/dL (7.8-10.44); Carbon Dioxide 22 mmol/L (23-31); Cardiac Risk 5.2 (Less than 4.5); Chloride 105 mmol/L (98-107); Cholesterol 202 mg/dl (< 200 Desired); Estimated GFR-MDRD 87; Glucose 151 mg/dL (80-115); HDL Cholesterol 39 mg/dL (>60 Neg Risk); LDL Cholesterol, Calculated 99 mg/dL; Potassium 4.5 mmol/L (3.5-5.1); Protein, Total 7.3 g/dL (5.8-8.1); Sodium 136 mmol/L (136-145); Triglycerides 320 mg/dL (Less than 150)
[2017-03-17] MEDS: Famotidine 20 MG TAB PO SCH ×2 (06:03→20:39)
[2017-03-17] MEDS: Metoprolol Tartrate 25 MG TAB PO SCH ×2 (06:03→20:39)
[2017-03-17] MEDS ORDERED: FLU VACC QS2017-18 36 mo. & older 0.5 ML SYRINGE IM ONE (09:00)
[2017-03-17] MEDS ORDERED: Verapamil 5 MG/2 ML VIAL ONE (10:35)
[2017-03-17] MEDS ORDERED: Heparin 10,000 UNITS/1 ML VIAL ONE (10:35)
[2017-03-17] MEDS ORDERED: Nitroglycerin 100MG/250ML BOT 250 ML ONE (10:35)
[2017-03-17] MEDS ORDERED: Iopamidol 370 76% 100 ML VIAL ONE (11:11)
[2017-03-17] MEDS ORDERED: Acetaminophen/Codeine 30-300mg Tablet PO PRN ×2 (11:24)
[2017-03-17] MEDS ORDERED: traMADol HCl 50 MG TAB PO PRN (11:24)
[2017-03-17] MEDS ORDERED: Nitroglycerin 0.4 MG TAB (25 Tab Bottle) SL PRN (11:24)
[2017-03-17] MEDS ORDERED: Sodium Chloride 0.9% 200 ML IV SCH (11:30)
[2017-03-17] MEDS ORDERED: Communication Order-Pharmacy FS SCH (13:37)
--- NOTE | 2017-03-17 13:48 | PDOC.PN ---
- Subjective Encounter Start Date: 03/17/17 Encounter Start Time: 13:47 Patient seen and examined. No new complaints. No overnight events had heart cath today. - Objective Resuscitation Status: Resuscitation Status FULL:Full Resuscitation Vital Signs & Weight: Vital Signs (12 hours) Temp Pulse Resp BP Pulse Ox 03/17/17 11:25 98.3 F 61 16 118/61 96 03/17/17 11:09 99 03/17/17 08:00 98.2 F 69 16 03/17/17 07:52 98.2 F 69 16 125/66 99 03/17/17 04:00 98.3 F 74 20 128/63 97 Weight Weight 196 lb 4.8 oz Result Diagrams: 03/17/17 05:14 03/17/17 05:15 Additional Labs: Accuchecks 03/17/17 03/17/17 03/16/17 11:46 06:05 20:57 POC Glucose 127 H 171 H 233 H 03/16/17 17:07 POC Glucose 125 H Phys Exam - Physical Examination Constitutional: NAD HEENT: sclera anicteric Neck: supple Respiratory: no wheezing, no rales Cardiovascular: RRR Gastrointestinal: soft Musculoskeletal: no edema Neurological: non-focal Psychiatric: normal affect, A&O x 3 Skin: no rash Dx/Plan (1) Chest pain Code(s): R07.9 - CHEST PAIN, UNSPECIFIED Status: Acute (2) CAD (coronary artery disease) Code(s): I25.10 - ATHSCL HEART DISEASE OF [place] CORONARY ARTERY W/O ANG PCTRS Status: Acute (3) Hyperlipemia Code(s): E78.5 - HYPERLIPIDEMIA, UNSPECIFIED Status: Acute (4) Tobacco abuse Code(s): Z72.0 - TOBACCO USE Status: Acute - Plan * . had heart cath today need CABG AM labs check thyroid panel
[2017-03-17] MEDS: Insulin Detemir 100 UNITS/ML 5 UNITS in Pre-Filled Syringe 1 EACH SC SCH (14:08)
--- NOTE | 2017-03-17 14:21 | CON ---
DATE OF CONSULTATION: 03/17/2017 HISTORY OF PRESENT ILLNESS: This is a 66-year-old gentleman who [place] by himself who noticed the onset of some chest discomfort on the evening of admission. He presented to the emergency room where he was found to have a slight elevation in his troponin I with a fairly unre markable EKG. He underwent cardiac catheterization today demonstrating significant proximal LAD dise ase just after first diagonal high grade lesion in a ramus or obtuse marginal branch and another high grade lesion in the distal circumflex. The right coronary artery had 40% to 50% stenosis throughout . Left ventricular systolic function appeared normal. The patient's initial triglycerides were elev ated at 320, cholesterol 200, and his hemoglobin A1c was 7.2 with elevated blood sugars. PAST MEDICAL HISTORY: Negative for any major medical illnesses other than hospitalization about 1 mo nth ago for diarrhea. He has had a cardiac echo showing normal left ventricular systolic function wi th no significant valvular heart disease. SOCIAL HISTORY: As mentioned, the patient lives alone. He has a son in town and ex- who also li ves in the area. PHYSICAL EXAMINATION: GENERAL: He is an alert and cooperative gentleman. Height 5 feet 9 inches, weight 196. NECK: No carotid bruits. LUNGS: Clear to auscultation with no wheezes or rhonchi, although he does have a productive cough. CARDIAC: No murmurs. ABDOMEN: Soft and nontender. EXTREMITIES: Palpable posterior tibial pulses bilaterally with no peripheral edema. He has a good l eft radial pulse and a dressing on the right wrist. The patient with cardiovascular risk factors of smoking 1 pack of cigarettes a day and possibly diabe lainey mellitus and diagnosed with triple vessel coronary artery disease. Gone over proposed surgical procedure as well as his options, risks, expectations. Questions have be en answered and he is agreeable to proceed tomorrow.
[2017-03-18] MEDS ORDERED: CEFAZOLIN/Water 2 GM/20 ML SYRINGE SLOW IVP SCH (04:00)
[2017-03-18 05:27] LABS: Anion Gap 11 mmol/L (10-20); BUN (Urea Nitrogen) 13 mg/dL (8.4-25.7); Calc. Creatinine Clearance 100 mL/min (70-130); Calcium 9.3 mg/dL (7.8-10.44); Carbon Dioxide 28 mmol/L (23-31); Chloride 102 mmol/L (98-107); Estimated GFR-MDRD 84; Glucose 158 mg/dL (80-115); Sodium 137 mmol/L (136-145)
[2017-03-18] MEDS: Metoprolol Tartrate 25 MG TAB PO SCH (06:13)
[2017-03-18] MEDS ORDERED: Albumin 5% 500 ML ONE (06:35)
[2017-03-18 06:43] LABS: Free T4 (Free Thyroxine) 0.71 ng/dL (0.70-1.48)
[2017-03-18] MEDS ORDERED: Heparin 10,000 UNITS/1 ML VIAL 30,000 UNITS in Sodium Chloride 0.9% 1,000 ML FS SCH (07:00)
[2017-03-18] MEDS ORDERED: Aspirin 81 mg Enteric Coated Tablet PO SCH (09:00)
[2017-03-18] MEDS ORDERED: Dexmedetomidine 200 MCG/2 ML VIAL ONE (09:19)
[2017-03-18] MEDS ORDERED: Vecuronium 10 MG VIAL ONE ×2 (09:19→12:59)
[2017-03-18] MEDS ORDERED: Norepinephrine 8 MG/0.9% NS 250 ML ONE (09:19)
[2017-03-18] MEDS ORDERED: CEFAZOLIN/Water 2 GM/20 ML SYRINGE ONE (09:23)
[2017-03-18] MEDS ORDERED: Midazolam HCl 2 mg/2 ml Vial ONE (09:58)
[2017-03-18] MEDS ORDERED: Fentanyl 100 MCG/2 ML VIAL ONE ×2 (10:11)
[2017-03-18] MEDS ORDERED: Midazolam HCl 5 mg/5 ml Vial ONE (10:11)
[2017-03-18] MEDS: Famotidine 20 MG TAB PO SCH (12:45)
[2017-03-18] MEDS: Insulin Detemir 100 UNITS/ML 5 UNITS in Pre-Filled Syringe 1 EACH SC SCH (12:46)
[2017-03-18] MEDS ORDERED: Aminocaproic Acid 5 GM/20 ML VIAL ONE (12:59)
[2017-03-18] MEDS ORDERED: PHENYLEPHRINE-NS 100 MCG/ML 10 ML SYRINGE ONE (12:59)
[2017-03-18] MEDS ORDERED: Sodium Bicarb 50 MEQ/50 ML VIAL ONE (12:59)
[2017-03-18] MEDS ORDERED: PROPOFOL 200 MG/20 ML VIAL ONE (12:59)
[2017-03-18] MEDS ORDERED: Heparin 30,000 units/30 ml VIAL ONE (12:59)
[2017-03-18] MEDS ORDERED: Protamine Sulfate 250 MG/25 ML VIAL ONE (12:59)
[2017-03-18] MEDS ORDERED: Lidocaine 1% PF 5 ML VIAL ONE (12:59)
[2017-03-18] MEDS ORDERED: Insulin Regular 300 UNITS/3 ML VIAL ONE (13:01)
--- NOTE | 2017-03-18 13:34 | PDOC.PN ---
- Subjective Encounter Start Date: 03/18/17 Encounter Start Time: 07:00 Patient is seen today, going for Procedure CABG, No other concerns noted. - Objective Resuscitation Status: Resuscitation Status FULL:Full Resuscitation MAR Reviewed: Yes Vital Signs & Weight: Vital Signs (12 hours) Temp Pulse Resp BP Pulse Ox 03/18/17 07:48 97.8 F 74 16 123/61 97 03/18/17 04:29 98.2 F 66 16 114/73 97 Weight Weight 189 lb 14.4 oz I&O: 03/17/17 03/18/17 03/19/17 06:59 06:59 06:59 Intake Total 560 Balance 560 Result Diagrams: 03/17/17 05:14 03/18/17 04:26 Additional Labs: Accuchecks 03/18/17 03/17/17 03/17/17 01:00 22:13 17:13 POC Glucose 188 H 170 H 117 H Radiology Reviewed by me: Yes Phys Exam - Physical Examination HEENT: PERRLA, moist MMs Neck: no nodes, no JVD Respiratory: no wheezing, no rales Cardiovascular: RRR, no significant murmur Gastrointestinal: soft, non-tender Musculoskeletal: no edema, pulses present Dx/Plan (1) CAD (coronary artery disease) Code(s): I25.10 - ATHSCL HEART DISEASE OF [place] CORONARY ARTERY W/O ANG PCTRS Status: Acute (2) Chest pain Code(s): R07.9 - CHEST PAIN, UNSPECIFIED Status: Acute (3) DM type 2 (diabetes mellitus, type 2) Status: Acute Qualifiers: Diabetes mellitus complication status: without complication - Plan PT/OT, social services analyst, DVT proph w/SCDs * . had heart cath yesterday. Today he is Taken for CABG due to triple vessel Disease. Paitnet is neew DM type 2 will start with oral hypoglycemisc at discharge, Will continue with SSI here. Paient will need Stastin/ BB, Will follow Cardiology recommedtions Will monitor for goat flares. DVT prophylaxis per cardiology after the surgery. - Discharge Day Encounter end time: 07:40 Review of Systems - Review of Systems ENT: negative: Ear Pain, Ear Discharge, Nose Pain, Nose Discharge, Nose Congestion, Mouth Pain, Mouth Swelling, Throat Pain, Throat Swelling, Other Respiratory: negative: Cough, Dry, Shortness of Breath, Hemoptysis, SOB with Excertion, Pleuritic Pain, Sputum, Wheezing Cardiovascular: negative: chest pain, palpitations, orthopnea, paroxysmal nocturnal dyspnea, edema, light headedness, other Gastrointestinal: negative: Nausea, Vomiting, Abdominal Pain, Diarrhea, Constipation, Melena, Hematochezia, Other Genitourinary: negative: Dysuria, Frequency, Incontinence, Hematuria, Retention , Other Musculoskeletal: negative: Neck Pain, Shoulder Pain, Arm Pain, Back Pain, Hand Pain, Leg Pain, Foot Pain, Other Skin: negative: Rash, Lesions, [place], Bruising, Other - Medications/Allergies Allergies/Adverse Reactions: Allergies Allergy/AdvReac Type Severity Reaction Status Date / Time No Known Drug Allergies Allergy Verified 02/11/17 03:57 Medications: Current Medications Acetaminophen/Codeine Phosphate (Tylenol #3) 1 tab PO Q4H PRN PRN Reason: Mild Pain (1-3) Acetaminophen/Codeine Phosphate (Tylenol #3) 2 tab PO Q4H PRN PRN Reason: Moderate Pain (4-6) Hydrocodone Bitart/Acetaminophen ([place] 7.5/325) 1 tab PO Q4H PRN PRN Reason: Moderate Pain (4-6) Aspirin (Ecotrin) 81 mg PO DAILY [facility] Last Admin: 03/18/17 12:45 Dose: Not Given Benzonatate (Tessalon) 100 mg PO Q4H PRN PRN Reason: Cough Cefazolin Sodium (Ancef) 2 gm SLOW IVP WILLCALL [facility] Stop: 03/18/17 16:00 Dextrose/Water (Dextrose 50%) 25 gm SLOW IVP PRN PRN PRN Reason: Hypoglycemia Diphenhydramine HCl (Benadryl) 25 mg IVP Q4H PRN PRN Reason: Itching Famotidine (Pepcid) 20 mg PO BID [facility] Last Admin: 03/18/17 12:45 Dose: Not Given Glucagon (Glucagon) 1 mg IM PRN PRN PRN Reason: Hypoglycemia Guaifenesin/Dextromethorphan (Robitussin Dm) 15 ml PO Q4H PRN PRN Reason: Cough Hydralazine HCl (Apresoline) 10 mg SLOW IVP Q4H PRN PRN Reason: Systolic BP > 180 Insulin Detemir 5 units/ (Miscellaneous Medication) 0.05 mls @ 0 mls/hr SC QAM [facility] Last Admin: 03/18/17 12:46 Dose: Not Given Dextrose/Water (D5w) 1,000 mls @ 0 mls/hr IV .Q0M PRN; As Directed PRN Reason: Hypoglycemia Heparin Sodium (Porcine) 30, (000 units/ Sodium Chloride) 1,003 mls @ 0 mls/hr FS WILLCALL [facility] PRN Reason: As Directed Stop: 03/18/17 18:00 Insulin Human Lispro (Humalog) 0 units SC .MODERATE SLIDING SC PRN; Protocol PRN Reason: MODERATE SLIDING SCALE Last Admin: 03/16/17 13:28 Dose: 2 unit Labetalol HCl (Normodyne) 20 mg SLOW IVP Q4H PRN PRN Reason: Systolic BP > 180 Lactulose (Lactulose) 20 gm PO DAILYPRN PRN PRN Reason: Constipation Loperamide HCl (Imodium) 2 mg PO PRN PRN PRN Reason: Diarrhea/Loose Stools Magnesium Hydroxide (Milk Of Magnesium) 30 ml PO DAILYPRN PRN PRN Reason: Constipation Metoprolol Tartrate (Lopressor) 25 mg PO BID [facility] Last Admin: 03/18/17 06:13 Dose: 25 mg Miscellaneous Information (Communication Order-Pharmacy) 1 each FS ONE [facility] Stop: 03/18/17 17:00 Nitroglycerin (Nitrostat) 0.4 mg SL Q5MIN PRN PRN Reason: Chest Pain Sodium Chloride (Flush - Normal Saline) 10 ml IVF Q12HR [facility] Last Admin: 03/18/17 12:46 Dose: Not Given Sodium Chloride (Flush - Normal Saline) 10 ml IVF PRN PRN PRN Reason: Saline Flush Tramadol HCl (Ultram) 50 mg PO Q6H PRN PRN Reason: Moderate Pain (4-6)
[2017-03-18] MEDS ORDERED: Acetaminophen 325 MG TAB PO PRN (15:16)
[2017-03-18] MEDS ORDERED: Guaifenesin DM 100-10/5 ML UDCUP PO PRN (15:16)
[2017-03-18] MEDS ORDERED: Magnesium Sulfate 5 GM in Sodium Chloride 0.9% 1,000 ML IV SCH (15:16)
[2017-03-18] MEDS ORDERED: Sodium Chloride 0.9% 1,000 ML IV SCH (15:16)
[2017-03-18] MEDS ORDERED: HYDROcodone/Acetaminophen 5/325 mg Tablet PO PRN (15:16)
[2017-03-18] MEDS ORDERED: Potassium Chloride 20 MEQ/100 ML PREMIX BAG IVPB PRN (15:16)
[2017-03-18] MEDS ORDERED: Post-Op Insulin Drip Protocol IVPB ONE (15:16)
[2017-03-18] MEDS ORDERED: Bisacodyl 5 MG TAB PO PRN (15:16)
[2017-03-18] MEDS ORDERED: niCARdipine 20MG In NaCl 20 MG/200 ML BAG IVPB PRN (15:16)
[2017-03-18] MEDS ORDERED: hydrALAZINE 20 MG/ML VIAL SLOW IVP PRN (15:16)
[2017-03-18] MEDS ORDERED: Bisacodyl 10 MG SUPP PR PRN (15:16)
[2017-03-18] MEDS ORDERED: Fentanyl 100 MCG/2 ML VIAL SLOW IVP PRN (15:16)
[2017-03-18] MEDS ORDERED: DOPamine 400 MG/D5W 250 ML 250 ML IVPB PRN (15:16)
[2017-03-18] MEDS ORDERED: Promethazine HCl 25 MG/ML VIAL IM PRN (15:16)
[2017-03-18] MEDS ORDERED: Hetastarch 6% 500 ML 500 ML IVPB PRN (15:16)
[2017-03-18] MEDS ORDERED: Mag-Al 1200 mg/1200 mg/30 ML UDCUP PO PRN (15:16)
[2017-03-18] MEDS ORDERED: Insulin Regular 300 UNITS/3 ML VIAL SC PRN (15:23)
[2017-03-18] MEDS ORDERED: Dextrose 50% Abboject 50 ML SYRINGE SLOW IVP PRN (15:23)
[2017-03-18] MEDS ORDERED: Dextrose 5% in Water 1,000 ML IV PRN (15:23)
[2017-03-18] MEDS: Fentanyl 100 MCG/2 ML VIAL SLOW IVP PRN ×4 (15:32→22:04)
[2017-03-18 15:36] LABS: INR-International Normal Ratio 1.3; PTT 28.9 SEC (22.9-36.1); Prothrombin Time 16.3 SEC (12.0-14.7)
[2017-03-18] MEDS: Ondansetron HCl/PF 4 MG/2 ML Vial IVP PRN ×2 (15:40→20:49)
[2017-03-18 15:45] LABS: Base Excess (BEa) -1.9 mEq/L (0 (+/-) 2.5); CO2 Tension 45.1 mmHg (35.0-45.0); Calcium, Ionized 1.1 mmol/L (1.12-1.30); Hematocrit-ABG 42.1 % (42.0-52.0); O2 Tension (PaO2) 78.6 mmHg (80.0-100.0); pH, Arterial 7.34 (7.35-7.45)
[2017-03-18] MEDS: Ketorolac Tromethamine 30 MG/ML VIAL IVP SCH ×2 (15:45→23:13)
[2017-03-18 15:46] LABS: ALV-art Gradient 295.225 (0-20); Puncture Site ALONE
--- NOTE | 2017-03-18 15:51 | RAD ---
CHEST ONE VIEW: History: Post open heart surgery. Comparison: Chest radiograph 03-16-17. FINDINGS: Patient is intubated with endotracheal tube tip at the level of the clavicle above the maco. Centra l venous catheter is in place with tip in the right atrium. Mediastinal drains are present. Mild atelectatic change. Left thoracostomy tube is in place. No signi ficant pneumothorax. IMPRESSION: Expected post-surgical findings without complication. POS: RAFAL
[2017-03-18 15:54] LABS: Anion Gap 11 mmol/L (10-20); BUN (Urea Nitrogen) 9 mg/dL (8.4-25.7); Calc. Creatinine Clearance 126 mL/min (70-130); Calcium 7.8 mg/dL (7.8-10.44); Carbon Dioxide 22 mmol/L (23-31); Chloride 112 mmol/L (98-107); Estimated GFR-MDRD Greater than 90; Glucose 163 mg/dL (80-115); Potassium 3.8 mmol/L (3.5-5.1); Sodium 141 mmol/L (136-145)
[2017-03-18 16:09] LABS: Band 7 % (5-11); Hemoglobin 14.7 g/dL (14.0-18.0); Lymphocytes 5 % (21-51); MDiff Complete? YES; Mean Corpuscular HGB CONC 33.1 g/dL (32.0-36.0); Mean Corpuscular Hemoglobin 31.2 pg (27.0-31.0); Mean Corpuscular Volume 94.5 fl (80.0-94.0); Mean Platelet Volume 7.5 fL (7.4-10.4); Monocytes 5 % (0-10); Neutrophil 82 % (42-75); PLT Morphology Comment Appears Adequate; Platelet Count 182 thou/uL (130-400); RBC Distribution Width 13.5 % (11.5-14.5); Reactive Lymphocytes 1 % (0-10); Red Blood Cell (RBC) Count 4.69 mill/uL (4.70-6.10); White Blood Cell (WBC) Count 23.6 thou/uL (4.8-10.8)
[2017-03-18] MEDS ORDERED: Morphine 4 MG/ML VIAL SLOW IVP PRN (17:00)
[2017-03-18] MEDS: CEFAZOLIN/Water 2 GM/20 ML SYRINGE SLOW IVP SCH (17:41)
[2017-03-18 20:48] LABS: Hemoglobin 13.7 g/dL (14.0-18.0)
[2017-03-18] MEDS: HYDROcodone/Acetaminophen 5/325 mg Tablet PO PRN (20:48)
[2017-03-18] MEDS ORDERED: Simvastatin 20 MG TAB PO SCH (21:00)
[2017-03-18] MEDS ORDERED: Famotidine/PF 20 mg/2ml Vial SLOW IVP SCH (21:00)
[2017-03-18] MEDS ORDERED: Famotidine 40 MG/4 ML VIAL SLOW IVP SCH (21:15)
[2017-03-18 21:34] LABS: Potassium 4.5 mmol/L (3.5-5.1)
[2017-03-19] MEDS: Fentanyl 100 MCG/2 ML VIAL SLOW IVP PRN ×2 (00:04→02:47)
--- NOTE | 2017-03-19 00:38 | OP ---
DATE: 03/18/2017 PREOPERATIVE DIAGNOSIS: Coronary artery disease. POSTOPERATIVE DIAGNOSIS: Coronary artery disease. PROCEDURE: Coronary artery bypass grafting with to a 1.5 mm ramus, 1.5 mm OM and 1.5 mm PDA. SURGEON: Jese Parr M.D. GAS STATION OPERATOR: Vinny Salmon M.D. PROCEDURE IN DETAIL: After adequate anesthesia had been obtained, the patient was prepped and draped . I initially made an incision over the left greater saphenous vein at and began endovascular vein harvest. When Dr. Maurice arrived, he completed this with Dr. Salmon. I performed a median sternotomy entering the right pleura, which was closed with Vicryl suture. Left internal mammary ar carlos was harvested. The mammary divided distally after heparinization. It was passed posterior to t he thymus gland at which time pericardium was opened. Aorta and right atrial cannulation was perform ed and cardiopulmonary bypass was instituted. The aorta was cross-clamped and a liter of [place] ca rdioplegic solution was given through the aortic root. Individually, the three distal anastomoses we re performed and the diagonal artery was the largest of the bunch, but it did not need grafting. The crossclamp was then removed, then partial occluding clamp placed, and 3 proximal anastomoses perform ed on the aortic root, marked with rings. The proximal and distal suture lines were inspected and no other sutures were required in distal circumflex toe. Following this, the patient was weaned from c ardiopulmonary bypass after placing temporary atrial pacing wires. The cannulas were removed, and th e aortic cannulation site was secured with a 4-0 Prolene suture. Mediastinal and bilateral drains we re placed, following which the sternum was reapproximated with #7 interrupted wire using zip ties on the body of the sternum. Vancomycin paste, platelet-enriched blood, and platelet-poor plasma were ut ilized around the sternal and the subcutaneous surfaces. Subcutaneous tissue and skin were closed in layers and the patient is to be taken to the ICU in guarded condition.
[2017-03-19] MEDS: CEFAZOLIN/Water 2 GM/20 ML SYRINGE SLOW IVP SCH (01:12)
[2017-03-19] MEDS: HYDROcodone/Acetaminophen 5/325 mg Tablet PO PRN ×3 (01:12→20:48)
[2017-03-19] MEDS ORDERED: Sodium Chloride 0.9% 1,000 ML IV SCH (01:40)
[2017-03-19 04:41] LABS: #Lymphocytes 1.3 thou/uL (1.20-3.40); #Monocytes 1.1 thou/uL (0.11-0.59); #Neutrophils 11.1 thou/uL (1.40-6.50); %Basophils 0.2 % (0.0-1.0); %Eosinophils 0.2 % (0.0-10.0); %Lymphocytes 9.2 % (21.0-51.0); %Monocytes 7.9 % (0.0-10.0); %Neutrophils 82.4 % (42.0-75.0); Hemoglobin 12.6 g/dL (14.0-18.0); Mean Corpuscular HGB CONC 32.1 g/dL (32.0-36.0); Mean Corpuscular Hemoglobin 30.6 pg (27.0-31.0); Mean Corpuscular Volume 95.1 fl (80.0-94.0); Mean Platelet Volume 7.8 fL (7.4-10.4); Platelet Count 186 thou/uL (130-400); RBC Distribution Width 13.4 % (11.5-14.5); Red Blood Cell (RBC) Count 4.13 mill/uL (4.70-6.10); White Blood Cell (WBC) Count 13.5 thou/uL (4.8-10.8)
[2017-03-19 04:54] LABS: Anion Gap 9 mmol/L (10-20); BUN (Urea Nitrogen) 8 mg/dL (8.4-25.7); Calc. Creatinine Clearance 134 mL/min (70-130); Calcium 7.9 mg/dL (7.8-10.44); Carbon Dioxide 24 mmol/L (23-31); Chloride 111 mmol/L (98-107); Estimated GFR-MDRD Greater than 90; Glucose 129 mg/dL (80-115); Potassium 4.5 mmol/L (3.5-5.1); Sodium 139 mmol/L (136-145)
[2017-03-19] MEDS: Ketorolac Tromethamine 30 MG/ML VIAL IVP SCH ×4 (05:05→23:52)
[2017-03-19] MEDS ORDERED: Nitroglycerin 0.4 MG TAB 1 EACH SL PRN (06:39)
[2017-03-19] MEDS ORDERED: Promethazine HCl 25 MG/ML VIAL IM PRN (06:39)
[2017-03-19] MEDS ORDERED: Bisacodyl 10 MG SUPP PR PRN (06:39)
[2017-03-19] MEDS ORDERED: Fentanyl 100 MCG/2 ML VIAL SLOW IVP PRN ×2 (06:39)
[2017-03-19] MEDS ORDERED: HYDROcodone/Acetaminophen 5/325 mg Tablet PO PRN (06:39)
[2017-03-19] MEDS ORDERED: Mineral Oil ENEMA PR PRN (06:39)
[2017-03-19] MEDS ORDERED: Milk Of Magnesia 30 ML UDCUP PO PRN (06:39)
[2017-03-19] MEDS ORDERED: Mag-Al 1200 mg/1200 mg/30 ML UDCUP PO PRN (06:39)
[2017-03-19] MEDS ORDERED: Bisacodyl 5 MG TAB PO PRN (06:39)
[2017-03-19] MEDS ORDERED: Ondansetron HCl/PF 4 MG/2 ML Vial IVP PRN (06:39)
[2017-03-19] MEDS ORDERED: Acetaminophen 325 MG TAB PO PRN (06:39)
[2017-03-19] MEDS ORDERED: Dextrose 5% in Water 1,000 ML IV PRN (06:52)
[2017-03-19] MEDS ORDERED: Dextrose 50% Abboject 50 ML SYRINGE SLOW IVP PRN (06:52)
[2017-03-19] MEDS: Polyethylene Glycol 3350 17 GM Packet PO SCH (08:20)
[2017-03-19] MEDS: Aspirin 325 mg Enteric Coated Tablet PO SCH (08:20)
[2017-03-19] MEDS: Famotidine 20 MG TAB PO SCH ×2 (08:20→20:49)
--- NOTE | 2017-03-19 08:23 | RAD ---
PORTABLE CHEST ONE VIEW: Date: 03-19-17 Time: 4:45 a.m. History: Post op open heart surgery. FINDINGS/IMPRESSION: There has been interval removal of the endotracheal tube since the previous day. The remainder of the exam is otherwise stable. POS: RAFAL
--- NOTE | 2017-03-19 08:43 | PDOC.CTH ---
<Radha Colon - Last Filed: 03/19/17 08:43> Cardiology Progress Note - Subjective The pt seen and examined. No overnight events. No cardiac complaints. He stated he still has some discomfort at surgical sites, but no more pressure in his Lt chest. Up to chair at this moment - Objective Vital Signs Temp Pulse Resp Pulse Ox 03/19/17 08:00 97.8 F 03/19/17 06:39 96 03/19/17 02:55 99 03/19/17 01:56 86 16 97 03/19/17 01:00 98.2 F 03/18/17 21:00 98 F Weight 203 lb 14.841 oz 03/18/17 03/19/17 03/20/17 06:59 06:59 06:59 Intake Total 560 2440 Output Total 3180 100 Balance 560 -740 -100 - Physical Examination General/Neuro: alert & oriented x3 Neck: no JVD present Lungs: CTA Heart: RRR Abdomen: soft Extremities: other: (Kavin wrap on Lt and JENNIE on Rt leg) - Telemetry Telemetry Rhythm: SR - Labs Result Diagrams: 03/19/17 03:55 03/19/17 03:55 Troponin/CKMB CK-MB (CK-2) 3.8 ng/mL (0-6.6) 03/16/17 03:06 Troponin I 1.540 ng/mL (< 0.028) H* 03/16/17 17:31 - Assessment/Plan 1. 3V CAD w/ S/p CABG x4 on 03/18/17 - Stable; not on BBloker or KAVIN due to hypotensive; on ASA and statin; Cont. monitor 2. Hyperlipidemia - on Lipitor 20mg daily 3. DM type 2 - on ACHS SS insulin; managed by PCP 4. Tobacco abuse - smoking cessation education given to the pt MAR Reviewed Review of Systems - Review of Systems Constitutional: reports: no symptoms reported EENTM: reports: no symptoms reported Respiratory: reports: no symptoms reported Cardiac (ROS): reports: no symptoms reported ABD/GI: reports: no symptoms reported : reports: no symptoms reported Musculoskeletal: reports: no symptoms reported (diminished at bases) <Angeli Izquierdo - Last Filed: 03/19/17 10:03> Cardiology Progress Note - Objective Vital Signs Temp Pulse Resp Pulse Ox 03/19/17 08:00 97.8 F 03/19/17 06:39 96 03/19/17 02:55 99 03/19/17 01:56 86 16 97 03/19/17 01:00 98.2 F Weight 203 lb 14.841 oz 03/18/17 03/19/17 03/20/17 06:59 06:59 06:59 Intake Total 560 2440 Output Total 3180 100 Balance 560 -740 -100 - Labs Result Diagrams: 03/19/17 03:55 03/19/17 03:55 Troponin/CKMB CK-MB (CK-2) 3.8 ng/mL (0-6.6) 03/16/17 03:06 Troponin I 1.540 ng/mL (< 0.028) H* 03/16/17 17:31 - Assessment/Plan pt. seen and eval. by me. I agree with the A/P by the MOVING PICTURE PRODUCER. he is doing well post CABG. Chest clear,RRR. Continue present meds.
[2017-03-19] MEDS ORDERED: Famotidine 40 MG/4 ML VIAL SLOW IVP SCH (09:00)
[2017-03-19] MEDS ORDERED: Aspirin 325 MG TAB PO SCH (09:00)
[2017-03-19] MEDS ORDERED: CEFAZOLIN/Water 2 GM/20 ML SYRINGE SLOW IVP SCH (10:00)
--- NOTE | 2017-03-19 17:07 | PDOC.PN ---
- Subjective Encounter Start Date: 03/19/17 Encounter Start Time: 08:30 - Objective Resuscitation Status: Resuscitation Status FULL:Full Resuscitation MAR Reviewed: Yes Vital Signs & Weight: Vital Signs (12 hours) Temp Pulse Pulse Pulse Resp BP BP 03/19/17 13:06 79 80 106/57 L 122/72 03/19/17 12:00 98.9 F 03/19/17 11:15 78 80 90/61 115/64 03/19/17 08:00 98.9 F 78 14 03/19/17 06:39 Pulse Ox Pulse Ox Pulse Ox 03/19/17 13:06 94 L 95 03/19/17 12:00 03/19/17 11:15 95 97 03/19/17 08:00 94 L 03/19/17 06:39 96 Weight Weight 203 lb 14.841 oz Most Recent Monitor Data Heart Rate from ECG 80 NIBP 106/53 NIBP BP-Mean 65 Respiration from ECG 20 SpO2 96 I&O: 03/18/17 03/19/17 03/20/17 06:59 06:59 06:59 Intake Total 560 2440 350 Output Total 3180 355 Balance 560 -740 -5 Result Diagrams: 03/19/17 03:55 03/19/17 03:55 Additional Labs: Accuchecks 03/19/17 03/19/17 03/19/17 11:48 06:11 03:58 POC Glucose 127 H 127 H 124 H 03/19/17 03/19/17 03/18/17 01:52 00:09 22:09 POC Glucose 112 H 122 H 121 H 03/18/17 03/18/17 03/18/17 20:30 19:50 18:37 POC Glucose 135 H 132 H 124 H 03/18/17 03/18/17 03/18/17 17:18 14:19 14:00 POC Glucose 107 215 H 247 H 03/18/17 03/18/17 03/18/17 13:19 13:00 12:15 POC Glucose 179 H 174 H 167 H 03/18/17 10:52 POC Glucose 133 H Radiology Reviewed by me: Yes Phys Exam - Physical Examination HEENT: PERRLA, moist MMs Neck: no nodes, no JVD Respiratory: no wheezing, no rales Cardiovascular: RRR, no significant murmur Gastrointestinal: soft, non-tender Musculoskeletal: no edema, pulses present Neurological: non-focal, normal sensation Psychiatric: normal affect, A&O x 3 Skin: no rash, normal turgor Dx/Plan (1) CAD (coronary artery disease) Code(s): I25.10 - ATHSCL HEART DISEASE OF [place] CORONARY ARTERY W/O ANG PCTRS Status: Acute (2) Chest pain Code(s): R07.9 - CHEST PAIN, UNSPECIFIED Status: Resolved (3) DM type 2 (diabetes mellitus, type 2) Status: Acute Qualifiers: Diabetes mellitus complication status: without complication (4) S/P CABG x 4 Status: Acute - Plan cont current plan of care, PT/OT, incentive spirometry, DVT proph w/lovenox Paitent is s/p CABG due to triple vessel Disease. Barbara today seen coughing with Heart pillow. Paitnet is new DM type 2 will start with oral hypoglycemisc at discharge, Will continue with SSI here.barbara. Paient will need Stastin/ BB, Will follow Cardiology recommedtions at discharge, Will monitor for goat flares.barbara now. DVT prophylaxis per cardiology after the surgery. - Discharge Day Encounter end time: 09:00 Review of Systems - Review of Systems Eyes: negative: Pain, Vision Change, Conjunctivae Inflammation, Eyelid Inflammation, Redness, Other ENT: negative: Ear Pain, Ear Discharge, Nose Pain, Nose Discharge, Nose Congestion, Mouth Pain, Mouth Swelling, Throat Pain, Throat Swelling, Other Respiratory: Cough Cardiovascular: chest pain Gastrointestinal: negative: Nausea, Vomiting, Abdominal Pain, Diarrhea, Constipation, Melena, Hematochezia, Other Genitourinary: negative: Dysuria, Frequency, Incontinence, Hematuria, Retention , Other Musculoskeletal: negative: Neck Pain, Shoulder Pain, Arm Pain, Back Pain, Hand Pain, Leg Pain, Foot Pain, Other Skin: negative: Rash, Lesions, Francisco, Bruising, Other Neurological: negative: Weakness, Numbness, Incoordination, Change in Speech, Confusion, Seizures, Other - Medications/Allergies Allergies/Adverse Reactions: Allergies Allergy/AdvReac Type Severity Reaction Status Date / Time No Known Drug Allergies Allergy Verified 02/11/17 03:57 Medications: Current Medications Acetaminophen (Tylenol) 650 mg PO Q6H PRN PRN Reason: Headache/Fever or Pain Hydrocodone Bitart/Acetaminophen ([place] 5/325) 1 tab PO Q4H PRN PRN Reason: Moderate Pain (4-6) Hydrocodone Bitart/Acetaminophen ([place] 5/325) 2 tab PO Q4H PRN PRN Reason: Severe Pain (7-10) Last Admin: 03/19/17 08:36 Dose: 2 tab Al Hydroxide/Mg Hydroxide (Maalox) 30 ml PO Q4H PRN PRN Reason: Indigestion Albuterol/Ipratropium (Duoneb) 3 ml NEB [id number] PRN PRN Reason: Respiratory Distress Aspirin (Ecotrin) 325 mg PO DAILY [facility] Last Admin: 03/19/17 08:20 Dose: 325 mg Atorvastatin Calcium (Lipitor) 20 mg PO HS [facility] Bisacodyl (Dulcolax) 10 mg PO Q12H PRN PRN Reason: Constipation Bisacodyl (Dulcolax) 10 mg MA Q12H PRN PRN Reason: Constipation Dextrose/Water (Dextrose 50%) 25 gm SLOW IVP PRN PRN PRN Reason: PER HYPOGLYCEMIC PROTOCOL Enoxaparin Sodium (Lovenox) 40 mg SC 2100 [facility] Famotidine (Pepcid) 20 mg PO BID [facility] Last Admin: 03/19/17 08:20 Dose: 20 mg Fentanyl (Sublimaze) 25 mcg SLOW IVP Q2H PRN PRN Reason: Moderate breakthrough pain Fentanyl (Sublimaze) 50 mcg SLOW IVP Q2H PRN PRN Reason: Severe breakthrough pain Glucagon (Glucagon) 1 mg SC PRN PRN PRN Reason: PER HYPOGLYCEMIC PROTOCOL Guaifenesin/Dextromethorphan (Robitussin Dm) 15 ml PO Q4H PRN PRN Reason: Cough Dextrose/Water (D5w) 1,000 mls @ 0 mls/hr IV INF PRN; As Directed PRN Reason: PRN HYPOGLYCEMIC PROTOCOL Insulin Human Regular (Humulin R) 0 units SC Q4H PRN; Protocol PRN Reason: POST OP SLIDING SCALE Ketorolac Tromethamine (Toradol) 15 mg IVP Q6HR [facility] Stop: 03/21/17 12:01 Last Admin: 03/19/17 12:15 Dose: 15 mg Magnesium Hydroxide (Milk Of Magnesium) 30 ml PO Q12H PRN PRN Reason: Constipation Mineral Oil (Fleet Mineral Oil) 133 ml MA DAILYPRN PRN PRN Reason: Constipation Nitroglycerin (Nitrostat) 0.4 mg SL Q5MIN PRN PRN Reason: Chest Pain Ondansetron HCl (Zofran) 4 mg IVP Q6H PRN PRN Reason: Nausea/Vomiting Polyethylene Glycol (Miralax) 17 gm PO DAILY [facility] Last Admin: 03/19/17 08:20 Dose: Not Given Promethazine HCl (Phenergan) 6.25 mg IM Q4H PRN PRN Reason: Nausea/Vomiting
[2017-03-19] MEDS: Enoxaparin Sodium 40 MG/0.4 ML SYRINGE SC SCH (20:48)
[2017-03-19] MEDS: Atorvastatin Calcium 20 MG TAB PO SCH (20:49)
[2017-03-19] MEDS: Guaifenesin DM 100-10/5 ML UDCUP PO PRN (20:49)
[2017-03-19] MEDS: Insulin Regular 300 UNITS/3 ML VIAL SC PRN (21:05)
[2017-03-20] MEDS: Ketorolac Tromethamine 30 MG/ML VIAL IVP SCH ×3 (05:52→17:39)
[2017-03-20] MEDS: Guaifenesin DM 100-10/5 ML UDCUP PO PRN ×2 (05:53→20:39)
[2017-03-20] MEDS ORDERED: Furosemide 40 MG TAB PO SCH (07:00)
[2017-03-20] MEDS: Famotidine 20 MG TAB PO SCH ×2 (07:46→20:37)
[2017-03-20] MEDS: Insulin Regular 300 UNITS/3 ML VIAL SC PRN ×3 (07:47→18:37)
[2017-03-20] MEDS: Metoprolol Tartrate 25 MG TAB PO SCH ×2 (07:47→20:37)
[2017-03-20] MEDS: Aspirin 325 mg Enteric Coated Tablet PO SCH (07:47)
[2017-03-20] MEDS: Polyethylene Glycol 3350 17 GM Packet PO SCH (07:47)
--- NOTE | 2017-03-20 13:31 | PDOC.PN ---
- Subjective Encounter Start Date: 03/20/17 Encounter Start Time: 08:15 -: old records requested/rev Pt seen and examined, chart reviewed in its entirety. This is my first visit with this patient. no acute events overnight, pain well controlled. only complaint this morning is that his coffee is cold. No F/c, no SOb, no N/V/D/C Dr Parr's note reviewed, wants to keep him here another day or two 10 point ROS performed and neg for all systems except as above - Objective Resuscitation Status: Resuscitation Status FULL:Full Resuscitation MAR Reviewed: Yes Vital Signs & Weight: Vital Signs (12 hours) Temp Pulse Pulse Pulse Resp BP BP 03/20/17 12:05 79 87 129/67 112/62 03/20/17 11:44 98.7 F 86 20 03/20/17 08:00 97.9 F 91 18 03/20/17 07:39 97.9 F 91 18 03/20/17 03:59 98.7 F 81 24 H BP BP Pulse Ox Pulse Ox Pulse Ox 03/20/17 12:05 95 95 03/20/17 11:44 116/56 L 92 L 03/20/17 08:00 95 03/20/17 07:39 111/55 L 95 03/20/17 03:59 131/64 92 L Weight Weight 206 lb 4.8 oz Most Recent Monitor Data Heart Rate from ECG 80 NIBP 106/53 NIBP BP-Mean 65 Respiration from ECG 20 SpO2 96 I&O: 03/19/17 03/20/17 03/21/17 06:59 06:59 06:59 Intake Total 2440 350 Output Total 3180 355 Balance -740 -5 Result Diagrams: 03/19/17 03:55 03/19/17 03:55 Additional Labs: Accuchecks 03/20/17 03/20/17 03/19/17 11:44 05:48 20:54 POC Glucose 162 H 148 H 208 H 03/19/17 17:57 POC Glucose 124 H Radiology Reviewed by me: Yes EKG Reviewed by me: Yes Phys Exam - Physical Examination Constitutional: NAD HEENT: PERRLA, moist MMs, sclera anicteric, oral pharynx no lesions Neck: no nodes, no JVD, supple, full ROM Respiratory: no wheezing, no rales coarse bilaterla rales, no wheezes, no prolonged expiration Cardiovascular: RRR, no significant murmur, no rub Gastrointestinal: soft, non-tender, no distention, positive bowel sounds Musculoskeletal: pulses present, edema present Neurological: non-focal, normal sensation, moves all 4 limbs Lymphatic: no nodes Psychiatric: normal affect, A&O x 3 Skin: no rash, normal turgor, cap refill <2 seconds Deviation from normal: sternotomy dressing with slight yellow strikethough in the upper left quadr Dx/Plan (1) CAD (coronary artery disease) Code(s): I25.10 - ATHSCL HEART DISEASE OF [place] CORONARY ARTERY W/O ANG PCTRS Status: Acute Qualifiers: Coronary Disease-Associated Artery/Lesion type: bypass graft, autologous vein Associated angina: without angina Qualified Code(s): I25.810 - Atherosclerosis of coronary artery bypass graft(s) without angina pectoris Comment: in with NSTEMI, CABG x 4 vessels on 03/18. doing well, pt plans to go home with outpatient cardiac rehab. Dr Parr expect to release in 1-2 days (2) DM type 2 (diabetes mellitus, type 2) Status: Chronic Qualifiers: Diabetes mellitus complication status: without complication Diabetes mellitus retirement insulin use: without retirement use Qualified Code(s): E11.9 - Type 2 diabetes mellitus without complications (3) S/P CABG x 4 Status: Acute (4) Tobacco abuse Code(s): Z72.0 - TOBACCO USE Status: Chronic - Plan cont current plan of care, PT/OT, social services director, incentive spirometry, out of bed/ambulate * .
--- NOTE | 2017-03-20 13:37 | PDOC.CTH ---
<Radha Colon - Last Filed: 03/20/17 13:37> Cardiology Progress Note - Subjective The pt seen and examined. No overnight events. No cardiac complaints. He has been walking with PTs without any difficulties. - Objective Vital Signs Temp Pulse Pulse Pulse Resp BP BP 03/20/17 12:05 79 87 129/67 112/62 03/20/17 11:44 98.7 F 86 20 03/20/17 08:00 97.9 F 91 18 03/20/17 07:39 97.9 F 91 18 03/20/17 03:59 98.7 F 81 24 H BP BP Pulse Ox Pulse Ox Pulse Ox 03/20/17 12:05 95 95 03/20/17 11:44 116/56 L 92 L 03/20/17 08:00 95 03/20/17 07:39 111/55 L 95 03/20/17 03:59 131/64 92 L Weight 206 lb 4.8 oz 03/19/17 03/20/17 03/21/17 06:59 06:59 06:59 Intake Total 2440 350 Output Total 3180 355 Balance -740 -5 - Physical Examination General/Neuro: alert & oriented x3 Neck: no JVD present Lungs: CTA Heart: RRR Abdomen: soft Extremities: + femoral B - Telemetry Telemetry Rhythm: SR - Labs Result Diagrams: 03/19/17 03:55 03/19/17 03:55 Troponin/CKMB CK-MB (CK-2) 3.8 ng/mL (0-6.6) 03/16/17 03:06 Troponin I 1.540 ng/mL (< 0.028) H* 03/16/17 17:31 - Assessment/Plan 1. 3V CAD w/ S/p CABG x4 on 03/18/17 - Stable; Metoprolol was started from today; on ASA and statin; Cont. monitor 2. HTN - stable with Metoprolol; cont. monito 3. Hyperlipidemia - on Lipitor 20mg daily 5. DM type 2 - on ACHS SS insulin; managed by PCP 6. Tobacco abuse - smoking cessation education given to the pt MAR Reviewed Review of Systems - Review of Systems Constitutional: reports: no symptoms reported EENTM: reports: no symptoms reported Respiratory: reports: no symptoms reported Cardiac (ROS): reports: no symptoms reported ABD/GI: reports: no symptoms reported <Angeli Izquierdo - Last Filed: 03/20/17 14:25> Cardiology Progress Note - Objective Vital Signs Temp Pulse Pulse Pulse Resp BP BP 03/20/17 12:51 104 H 90 139/68 126/58 L 03/20/17 12:05 79 87 129/67 112/62 03/20/17 11:44 98.7 F 86 20 03/20/17 08:00 97.9 F 91 18 03/20/17 07:39 97.9 F 91 18 03/20/17 03:59 98.7 F 81 24 H BP BP Pulse Ox Pulse Ox Pulse Ox 03/20/17 12:51 92 L 92 L 03/20/17 12:05 95 95 03/20/17 11:44 116/56 L 92 L 03/20/17 08:00 95 03/20/17 07:39 111/55 L 95 03/20/17 03:59 131/64 92 L Weight 206 lb 4.8 oz 03/19/17 03/20/17 03/21/17 06:59 06:59 06:59 Intake Total 2440 350 Output Total 3180 355 Balance -740 -5 - Labs Result Diagrams: 03/19/17 03:55 03/19/17 03:55 Troponin/CKMB CK-MB (CK-2) 3.8 ng/mL (0-6.6) 03/16/17 03:06 Troponin I 1.540 ng/mL (< 0.028) H* 03/16/17 17:31 - Assessment/Plan Pt. seen and eval. by me. Doing well post CABG. I agree with the A/P by the HOSPITAL FOOD SERVICE WORKER. He is ambulating. Chest clear. RRR. Continue present meds.
[2017-03-20] MEDS: Atorvastatin Calcium 20 MG TAB PO SCH (20:37)
[2017-03-20] MEDS: Enoxaparin Sodium 40 MG/0.4 ML SYRINGE SC SCH (20:37)
[2017-03-21] MEDS: Ketorolac Tromethamine 30 MG/ML VIAL IVP SCH ×2 (00:33→05:22)
[2017-03-21 05:48] LABS: Hemoglobin 11.9 g/dL (14.0-18.0)
[2017-03-21] MEDS: Famotidine 20 MG TAB PO SCH ×2 (08:52→20:21)
[2017-03-21] MEDS: Polyethylene Glycol 3350 17 GM Packet PO SCH (08:52)
[2017-03-21] MEDS: Aspirin 325 mg Enteric Coated Tablet PO SCH (08:52)
[2017-03-21] MEDS: Furosemide 40 MG TAB PO SCH (08:53)
[2017-03-21] MEDS: Potassium Chloride 10 MEQ TAB PO SCH (08:53)
[2017-03-21] MEDS: Metoprolol Tartrate 25 MG TAB PO SCH ×2 (08:53→20:22)
--- NOTE | 2017-03-21 13:58 | PDOC.PN ---
- Subjective Encounter Start Date: 03/21/17 Encounter Start Time: 10:40 Pt feeling well, only c/o CP with coughing, No F/C, no N/V/D/C, no SPutum prduction, no SOB. CT surgery note reviewed, ok to d/c in 1-2 days Pt states he isinterested in exploring inpatient rehab as he has no reliable transportation to outpatient cardiac rehab 10 point ROs performed and neg for all systems except as above - Objective Resuscitation Status: Resuscitation Status FULL:Full Resuscitation MAR Reviewed: Yes Vital Signs & Weight: Vital Signs (12 hours) Temp Pulse Resp BP BP Pulse Ox 03/21/17 11:20 98.1 F 77 16 112/69 96 03/21/17 07:10 98.9 F 79 18 112/60 98 03/21/17 04:00 97.7 F 86 18 134/67 96 Weight Weight 206 lb 4.8 oz Most Recent Monitor Data Heart Rate from ECG 80 NIBP 106/53 NIBP BP-Mean 65 Respiration from ECG 20 SpO2 96 I&O: 03/20/17 03/21/17 03/22/17 06:59 06:59 06:59 Intake Total 350 1200 Output Total 355 925 Balance -5 275 Result Diagrams: 03/21/17 04:16 03/19/17 03:55 Additional Labs: Accuchecks 03/21/17 03/21/17 03/20/17 11:19 05:52 20:18 POC Glucose 198 H 138 H 194 H 03/20/17 15:07 POC Glucose 136 H Radiology Reviewed by me: No EKG Reviewed by me: No Phys Exam - Physical Examination Constitutional: NAD HEENT: PERRLA, moist MMs, sclera anicteric, oral pharynx no lesions Neck: no nodes, no JVD, supple, full ROM Respiratory: no wheezing, no rales, no rhonchi, clear to auscultation bilateral Cardiovascular: RRR, no significant murmur, no rub Gastrointestinal: soft, non-tender, no distention, positive bowel sounds Musculoskeletal: pulses present, edema present Neurological: non-focal, normal sensation, moves all 4 limbs Lymphatic: no nodes Psychiatric: normal affect, A&O x 3 Skin: no rash, normal turgor, cap refill <2 seconds Deviation from normal: dressing C/d/I without strikethrough Dx/Plan (1) CAD (coronary artery disease) Code(s): I25.10 - ATHSCL HEART DISEASE OF [place] CORONARY ARTERY W/O ANG PCTRS Status: Acute Qualifiers: Coronary Disease-Associated Artery/Lesion type: bypass graft, autologous vein Associated angina: without angina Qualified Code(s): I25.810 - Atherosclerosis of coronary artery bypass graft(s) without angina pectoris Comment: in with NSTEMI, CABG x 4 vessels on 03/18. doing well, pt plans to go home with outpatient cardiac rehab, but now is considering inpatient rehab. Have asked case management to review. Dr Parr expect to release tomorrow 03/22 (2) DM type 2 (diabetes mellitus, type 2) Status: Chronic Qualifiers: Diabetes mellitus complication status: without complication Diabetes mellitus tank terminal gauger insulin use: without skilled nursing use Qualified Code(s): E11.9 - Type 2 diabetes mellitus without complications (3) S/P CABG x 4 Status: Acute Comment: doing well post op. per Dr Parr (4) Tobacco abuse Code(s): Z72.0 - TOBACCO USE Status: Chronic - Plan cont current plan of care, PT/OT, social insurance adviser * .
[2017-03-21] MEDS: Insulin Regular 300 UNITS/3 ML VIAL SC PRN ×2 (14:03→17:49)
--- NOTE | 2017-03-21 16:11 | EKG ---
Test Reason : CP Blood Pressure : / mmHG Vent. Rate : 096 BPM Atrial Rate : 096 BPM P-R Int : 152 ms QRS Dur : 098 ms QT Int : 336 ms P-R-T Axes : 062 -34 024 degrees QTc Int : 424 ms Normal sinus rhythm Possible Left atrial enlargement Incomplete right bundle branch block Possible Inferior infarct , age undetermined Abnormal ECG Confirmed by DELPHINE CARO D.O. ([id number]), news video editor JAMIE CARLIN ([id number]) on 03/21/2017 4:10:45 PM Referred By: OTF Confirmed By:DELPHINE CARO D.O.
[2017-03-21] MEDS: Enoxaparin Sodium 40 MG/0.4 ML SYRINGE SC SCH (20:21)
[2017-03-21] MEDS: Atorvastatin Calcium 20 MG TAB PO SCH (20:21)
[2017-03-21] MEDS: Guaifenesin DM 100-10/5 ML UDCUP PO PRN (20:22)
[2017-03-21] MEDS ORDERED: Atorvastatin Calcium 20 MG TAB PO SCH ×2 (20:29→20:45)
[2017-03-22] MEDS: Potassium Chloride 10 MEQ TAB PO SCH (08:24)
[2017-03-22] MEDS: Metoprolol Tartrate 25 MG TAB PO SCH (08:24)
[2017-03-22] MEDS: Aspirin 325 mg Enteric Coated Tablet PO SCH (08:25)
[2017-03-22] MEDS: Famotidine 20 MG TAB PO SCH (08:25)
[2017-03-22] MEDS: Furosemide 40 MG TAB PO SCH (08:25)
[2017-03-22] MEDS: Polyethylene Glycol 3350 17 GM Packet PO SCH (08:27)
[2017-03-22 19:10] VITALS: BP 124/67; TEMP 97.9
--- NOTE | 2017-03-23 14:56 | DIS ---
DATE OF ADMISSION: 03/16/2017 DATE OF DISCHARGE: 03/22/2017 PRIMARY CARE PHYSICIAN: Nghia Salvador M.D. DISCHARGE DIAGNOSES: 1. Coronary artery disease. 2. Non-ST elevation myocardial infarction, present on admission. 3. Diabetes mellitus type 2. 4. Tobacco abuse, chronic. 5. Status post new coronary artery bypass grafting x4 vessels. 6. Gastroesophageal reflux disease. CONSULTATIONS: 1. Dr. Zach Izquierdo, 03/16/2017. 2. Dr. Jese Parr, 03/17/2017. PROCEDURES: 1. Percutaneous transluminal coronary angiography, 03/16/[address] Izquierdo. 2. Coronary artery bypass grafting x4 vessels by Dr. Jese Parr 03/18/2017. HISTORY AND PHYSICAL: Mr. Shen is a 67-year-old gentleman with history of GERD who presented to [facility] department on 03/16/2017 with complaints of chest pain. Workup in the emergency department alec wed a non-ST elevation MO. Cardiology consulted. He was also diagnosed with new onset diabetes, was on Levemir and sliding scale. We were called for admission. The patient was seen by Dr. Barfield with plans as above. The patient was taken to the cardiac cath tech by Dr Karly Izquierdo and was found to have EF of 55%-60%, LAD, left circumflex, and RCA significant stenoses. Trop onin on admission was 1.224. The patient was admitted. Dr. Parr was consulted. Overnight, the patient was stable, was seen by Dr. Parr in the afternoon of 03/17/2017. He agreed t he patient needed to go for artery bypass grafting and arrangement was made for him to go on 03/18/19 18. The patient remained stable on cardioprotective medications. 03/18/2017, the patient went to the operating room for coronary artery bypass grafting. He had routi ne postoperative course, was uncomplicated. I took the case over from Dr. Lockwood on 03/20/2017. The patient was doing well and ambulating with physical therapy. Patient on 03/21/2017 stated interested in looking into inpatient rehabilitation due to lack of reliable transportation. welding manager consu lted and rehab screen was started. The patient was ultimately accepted and discharged to inpatient r ehabilitation on 03/22/2017. The patient was seen and examined on the day of discharge. Discharge p jamil and disposition was discussed with the patient [id number] at the bedside. DISCHARGE MEDICATIONS: 1. Aspirin 325 mg daily. 2. Lipitor 40 mg at bedtime. 3. Lasix 40 mg p.o. q.a.m. 4. Hydrocodone 5/325 1-2 q.4 hours p.r.n. 5. Metoprolol tartrate 25 mg p.o. b.i.d. 6. MiraLax 17 grams daily. 7. Potassium chloride 10 mEq daily with breakfast. DISCHARGE DIET: Heart healthy diabetic diet recommended. DISCHARGE ACTIVITY: Per cardiopulmonary limits. Physical therapy, occupational therapy, and outpati ent cardiac rehab has been arranged. HOSPITAL COURSE: When the patient rehabilitation was explored, the patient was ambulating too far an d patient was not felt to be a candidate for inpatient rehabilitation. Discussed with the patient fu rther and he was agreeable to going home the following day. He was kept overnight and discharged home on 03/22/2017. Discharge activity, per cardiopulmonary limits. Outpatient cardiac rehab arranged. FOLLOWUP APPOINTMENTS: 1. Primary care physician within a week. 2. Dr. Parr in [address] Izquierdo in 2-3 weeks. DISCHARGE CONDITION: Stable. DISPOSITION: Discharged home via private vehicle.
--- NOTE | 2017-03-26 19:33 | EKG ---
Test Reason : POST CABG Blood Pressure : / mmHG Vent. Rate : 069 BPM Atrial Rate : 069 BPM P-R Int : 166 ms QRS Dur : 094 ms QT Int : 460 ms P-R-T Axes : 072 019 072 degrees QTc Int : 492 ms Normal sinus rhythm Prolonged QT Abnormal ECG When compared with ECG of 16-MAR-2017 02:56, (Unconfirmed) Incomplete right bundle branch block is no longer Present Confirmed by FRANKLIN AMAYA ([id number]) on 03/26/2017 7:33:08 PM Referred By: Humble AVILA Confirmed By:FRANKLIN AMAYA
[2017-04-02 10:15] LABS: Actual Bicarbonate (HCO3a) 20.3 mEq/L (22-26); Base Excess (BEa) -4.5 mEq/L (0 (+/-) 2.5); CO2 Tension 36.9 mmHg (35.0-45.0); Hematocrit-ABG 42.6 % (42.0-52.0); Hemoglobin (Hb) 13.9 g/dL (14.0-18.0); O2 Tension (PaO2) 259.7 mmHg (80.0-100.0); pH, Arterial 7.36 (7.35-7.45)
[2017-04-02 10:16] LABS: Puncture Site ALINE
[2017-04-02 10:17] LABS: Actual Bicarbonate (HCO3a) 21.9 mEq/L (22-26); Base Excess (BEa) -4.4 mEq/L (0 (+/-) 2.5); CO2 Tension 44.9 mmHg (35.0-45.0); Hematocrit-ABG 44.3 % (42.0-52.0); Hemoglobin (Hb) 14.5 g/dL (14.0-18.0); O2 Tension (PaO2) 406.7 mmHg (80.0-100.0); pH, Arterial 7.31 (7.35-7.45)
[2017-04-02 10:18] LABS: Calcium, Ionized 1.1 mmol/L (1.12-1.30); Puncture Site ALINE
[2017-04-02 10:18] LABS: CO2 Tension 49.6 mmHg (35.0-45.0); pH, Arterial 7.32 (7.35-7.45)
[2017-04-02 10:19] LABS: Actual Bicarbonate (HCO3a) 24.8 mEq/L (22-26); Base Excess (BEa) -1.8 mEq/L (0 (+/-) 2.5); Hematocrit-ABG 37.6 % (42.0-52.0); Hemoglobin (Hb) 12.7 g/dL (14.0-18.0); O2 Tension (PaO2) 269.2 mmHg (80.0-100.0); Puncture Site ALINE
[2017-04-02 10:20] LABS: Actual Bicarbonate (HCO3v) 26 mEq/L (22-26); Base Excess -1.4 mEq/L (0 (+/- 2.5)); Hematocrit-VBG 37.9 % (39-50); Hemoglobin (Hb) 12.6 g/dL (13.1-17.2); pH (venous) 7.28 (7.35-7.45)
[2017-04-02 10:21] LABS: CO2 Tension 41.1 mmHg (35.0-45.0); O2 Tension (PaO2) 415.5 mmHg (80.0-100.0); pH, Arterial 7.37 (7.35-7.45)
[2017-04-02 10:21] LABS: Calcium, Ionized 0.97 mmol/L (1.16-1.32); Chloride (ABG LAB) 102 mmol/L (98-106); Potassium - ABG Lab 6.6 mmol/L (3.70-5.30); Sodium 136.6 mmol/L (133-146)
[2017-04-02 10:22] LABS: Actual Bicarbonate (HCO3a) 23.2 mEq/L (22-26); Analyzer IN Cardio OR; Hematocrit-ABG 38.7 % (42.0-52.0); Hemoglobin (Hb) 13.1 g/dL (14.0-18.0); Puncture Site ALINE
[2017-04-02 10:23] LABS: Actual Bicarbonate (HCO3a) 21.2 mEq/L (22-26); Base Excess (BEa) -5.3 mEq/L (0 (+/-) 2.5); Hematocrit-ABG 38.9 % (42.0-52.0); Hemoglobin (Hb) 13.2 g/dL (14.0-18.0); O2 Tension (PaO2) 253.7 mmHg (80.0-100.0); pH, Arterial 7.29 (7.35-7.45)
[2017-04-02 10:24] LABS: Analyzer IN Cardio OR; Calcium, Ionized 1.2 mmol/L (1.12-1.30); Puncture Site ALINE
== END 2017-03-22 16:51 | disposition home or self-care (01) | DRG 234 ==
LOC: ERS 02:53 → OBSVTOIN 05:54 → 2SW 05:54 → CCU 03-18 09:45 → 2NO 03-19 16:26
PROVIDERS: ADMIT Internal Medicine Infectious Disease; ATTEND Internal Medicine Infectious Disease
PROC: 4A023N7 Measurement of Cardiac Sampling and Pressure, Left Heart, Percutaneous Approach (ICD-10-PCS; principal; 2017-03-17)
PROC: B2111ZZ Fluoroscopy of Multiple Coronary Arteries using Low Osmolar Contrast (ICD-10-PCS; 2017-03-17)
PROC: B2151ZZ Fluoroscopy of Left Heart using Low Osmolar Contrast (ICD-10-PCS; 2017-03-17)
PROC: 02100Z9 Bypass Coronary Artery, One Artery from Left Internal Mammary, Open Approach (ICD-10-PCS; 2017-03-18)
PROC: 5A1221Z Performance of Cardiac Output, Continuous (ICD-10-PCS; 2017-03-18)
PROC: 021209W Bypass Coronary Artery, Three Arteries from Aorta with Autologous Venous Tissue, Open Approach (ICD-10-PCS; 2017-03-18)
PROC: 06BQ4ZZ Excision of Left Saphenous Vein, Percutaneous Endoscopic Approach (ICD-10-PCS; 2017-03-18)
DX: I21.4 Non-ST elevation (NSTEMI) myocardial infarction (principal); E11.9 Type 2 diabetes mellitus without complications; I25.10 Atherosclerotic heart disease of native coronary artery without angina pectoris; F12.90 Cannabis use, unspecified, uncomplicated; K21.9 Gastro-esophageal reflux disease without esophagitis; F17.210 Nicotine dependence, cigarettes, uncomplicated; M10.9 Gout, unspecified; I10 Essential (primary) hypertension; E78.5 Hyperlipidemia, unspecified
CPT/HCPCS: 36415; 36416; 36430; 71045; 80048; 80053; 80061; 80076; 82553; 82805; 83036; 83735; 84439; 84443; 84481; 84484; 85014; 85018; 85025; 85379; 85610; 85730; 86850; 86900; 86901; 90471; 90682; 93005; 93010; 93306; 93458; 93798; 94002; 94150; 94640; 94760; 96372; 99406; A4216; C1769; G0008; J1642; J1644; J1650; J1815; J1885; J2001; J2250; J2270; J2405; J2704; J2720; J3010; J3475; J3480; J7050; J7620; P9045; Q2036; S0017

== ENCOUNTER 2018-07-26 23:01 | Emergency (ER) | payer MEDICARE ==
[2018-07-26 23:27] LABS: #Basophils 0.1 thou/uL (0.0-0.2); #Eosinphils 0.2 thou/uL (0.0-0.7); #Lymphocytes 2.1 thou/uL (1.20-3.40); #Monocytes 0.9 thou/uL (0.11-0.59); #Neutrophils 7.9 thou/uL (1.40-6.50); %Basophils 0.6 % (0.0-1.0); %Eosinophils 1.8 % (0.0-10.0); %Monocytes 8.4 % (0.0-10.0); %Neutrophils 70.3 % (42.0-75.0); Hemoglobin 16.5 g/dL (14.0-18.0); Mean Corpuscular HGB CONC 32.2 g/dL (32.0-36.0); Mean Corpuscular Hemoglobin 29.1 pg (27.0-31.0); Mean Corpuscular Volume 90.3 fL (78.0-98.0); Mean Platelet Volume 7.4 fL (7.4-10.4); Platelet Count 300 thou/uL (130-400); RBC Distribution Width 13.5 % (11.5-14.5); Red Blood Cell (RBC) Count 5.69 mill/uL (4.70-6.10); White Blood Cell (WBC) Count 11.3 thou/uL (4.8-10.8)
--- NOTE | 2018-07-26 23:32 | RAD ---
Frontal radiograph chest: 07/26/2018 COMPARISON: 03/19/2017 Shortness of breath FINDINGS: Midline sternotomy wires are present. Increased linear interstitial density noted with pulm onary hyperinflation. Findings suggest COPD in the proper clinical setting. No pneumothorax, pleural fluid, focal consolidation, or alveolar edema. IMPRESSION: No focal consolidation or alveolar edema.
[2018-07-26 23:51] LABS: ALT (SGPT) 19 U/L (8-55); AST (SGOT) 18 U/L (5-34); Albumin 4.2 g/dL (3.4-4.8); Alkaline Phosphatase 131 U/L (40-150); Anion Gap 14 mmol/L (10-20); BUN (Urea Nitrogen) 9 mg/dL (8.4-25.7); Bilirubin, Total 0.3 mg/dL (0.2-1.2); Calc. Creatinine Clearance 0 mL/min (70-130); Calcium 9.2 mg/dL (7.8-10.44); Carbon Dioxide 26 mmol/L (23-31); Chloride 100 mmol/L (98-107); Estimated GFR-MDRD 73; Glucose 183 mg/dL (80-115); Potassium 4.3 mmol/L (3.5-5.1); Protein, Total 7.2 g/dL (5.8-8.1); Sodium 136 mmol/L (136-145)
[2018-07-27] MEDS ORDERED: Dexamethasone 10 MG/ML VIAL ONE (00:07)
== END 2018-07-27 02:50 | disposition home or self-care (01) ==
LOC: ERS 23:01
DX: J44.9 Chronic obstructive pulmonary disease, unspecified (principal); F17.210 Nicotine dependence, cigarettes, uncomplicated; E78.00 Pure hypercholesterolemia, unspecified
CPT/HCPCS: 36415; 71045; 80053; 83880; 84484; 85025; 93005; 94640; J1100; J7620

== ENCOUNTER 2018-09-25 20:45 | Emergency (ER) | payer MEDICARE, MEDICAID ==
[2018-09-25] MEDS ORDERED: Ketorolac Tromethamine 30 MG/ML VIAL ONE (22:17)
== END 2018-09-25 22:40 | disposition home or self-care (01) ==
LOC: ERS 20:45
DX: M54.5 Low back pain (principal); F17.210 Nicotine dependence, cigarettes, uncomplicated
CPT/HCPCS: 96372; 99283; J1885

== ENCOUNTER 2021-03-03 09:54 | Observation (INO) | payer MEDICARE, MEDICAID ==
[2021-03-03] MEDS ORDERED: Nitroglycerin 2% Ointment 1 INCH/1 GM Packet ONE (10:11)
[2021-03-03 10:20] LABS: #Basophils 0.1 thou/uL (0.0-0.2); #Eosinphils 0.2 thou/uL (0.0-0.7); #Lymphocytes 1.6 thou/uL (1.20-3.40); #Neutrophils 7.1 thou/uL (1.40-6.50); %Basophils 0.8 % (0.0-1.0); %Eosinophils 2.2 % (0.0-10.0); %Lymphocytes 16.1 % (21.0-51.0); %Monocytes 10.2 % (0.0-10.0); %Neutrophils 70.7 % (42.0-75.0); Hemoglobin 16.5 g/dL (14.0-18.0); Mean Corpuscular HGB CONC 33.3 g/dL (32.0-36.0); Mean Corpuscular Hemoglobin 31.1 pg (27.0-31.0); Mean Corpuscular Volume 93.5 fL (78.0-98.0); Mean Platelet Volume 7.4 fL (7.4-10.4); Platelet Count 268 thou/uL (130-400); RBC Distribution Width 13.2 % (11.5-14.5); White Blood Cell (WBC) Count 10.1 thou/uL (4.8-10.8)
[2021-03-03 10:49] LABS: ALT (SGPT) 16 U/L (8-55); AST (SGOT) 19 U/L (5-34); Albumin 3.6 g/dL (3.4-4.8); Alkaline Phosphatase 115 U/L (40-110); Anion Gap 13 mmol/L (10-20); BUN (Urea Nitrogen) 7 mg/dL (8.4-25.7); Bilirubin, Total 0.3 mg/dL (0.2-1.2); Calc. Creatinine Clearance 0 mL/min (70-130); Calcium 9.1 mg/dL (7.8-10.44); Carbon Dioxide 26 mmol/L (23-31); Chloride 102 mmol/L (98-107); Globulin 3.3 g/dL (2.4-3.5); Glucose 203 mg/dL (80-115); Lipase 22 U/L (8-78); Potassium 5.1 mmol/L (3.5-5.1); Protein, Total 6.9 g/dL (5.8-8.1); Sodium 136 mmol/L (136-145)
[2021-03-03] MEDS ORDERED: Ondansetron ODT 4 MG TAB PO PRN (11:26)
[2021-03-03 12:03] LABS: Magnesium 2.1 mg/dL (1.6-2.6)
[2021-03-03] MEDS: Acetaminophen 325 MG TAB PO PRN (12:55)
[2021-03-03] MEDS: Nicotine 14 MG PATCH TD SCH (12:56)
[2021-03-03 13:01] VITALS: BMI 27.7
[2021-03-03] MEDS ORDERED: Nitroglycerin 2% Ointment 1 INCH/1 GM Packet TOP SCH (14:00)
[2021-03-03 14:55] LABS: Troponin I 0.014 ng/mL (< 0.028)
[2021-03-03 15:47] LABS: SARS-CoV-2 PCR by NAA Not Detected (NotDetected)
[2021-03-03 17:09] LABS: Troponin I 0.011 ng/mL (< 0.028)
[2021-03-03] MEDS ORDERED: FLU VACC QS2021-22(65YR UP)/PF 240 MCG/0.7 ML SYRINGE IM ONE (18:00)
[2021-03-03] MEDS: Nitroglycerin 2% Ointment 1 INCH/1 GM Packet TOP SCH (18:14)
[2021-03-03 18:36] LABS: Amphetamine Not Detected (NotDetected); Barbiturates Screen Not Detected (NotDetected); Benzodiazepine Screen Not Detected (NotDetected); Cocaine Metabolite Screen Not Detected (NotDetected); Methadone Not Detected (NotDetected); Methamphetamine Not Detected (NotDetected); Opiate Screen Not Detected (NotDetected); Oxycodone Screen Not Detected (NotDetected); Phencyclidine (PCP) Not Detected (NotDetected); THC/Cannabinoid Screen Detected (NotDetected); Tricyclic Screen Not Detected (NotDetected)
[2021-03-03] MEDS: Famotidine 20 MG TAB PO SCH (20:11)
[2021-03-03] MEDS ORDERED: Atorvastatin Calcium 40 MG TAB PO SCH (21:00)
[2021-03-04] MEDS: Nitroglycerin 2% Ointment 1 INCH/1 GM Packet TOP SCH ×2 (01:39→12:37)
[2021-03-04] MEDS: Acetaminophen 325 MG TAB PO PRN ×2 (04:21→12:35)
[2021-03-04 05:00] LABS: #Eosinphils 0.2 thou/uL (0.0-0.7); #Lymphocytes 2.4 thou/uL (1.20-3.40); #Neutrophils 6.9 thou/uL (1.40-6.50); %Basophils 0.4 % (0.0-1.0); %Eosinophils 2.2 % (0.0-10.0); %Lymphocytes 22.7 % (21.0-51.0); %Monocytes 9.6 % (0.0-10.0); %Neutrophils 65.1 % (42.0-75.0); Hemoglobin 16.4 g/dL (14.0-18.0); Mean Corpuscular HGB CONC 31.4 g/dL (32.0-36.0); Mean Corpuscular Hemoglobin 29.3 pg (27.0-31.0); Mean Corpuscular Volume 93.1 fL (78.0-98.0); Mean Platelet Volume 7.5 fL (7.4-10.4); Platelet Count 273 thou/uL (130-400); RBC Distribution Width 13.2 % (11.5-14.5); Red Blood Cell (RBC) Count 5.62 mill/uL (4.70-6.10); White Blood Cell (WBC) Count 10.5 thou/uL (4.8-10.8)
[2021-03-04 05:06] LABS: Hemoglobin A1c 7.3 % (4.0-6.0)
[2021-03-04 05:21] LABS: Anion Gap 11 mmol/L (10-20); BUN (Urea Nitrogen) 7 mg/dL (8.4-25.7); Calc. Creatinine Clearance 109 mL/min (70-130); Carbon Dioxide 24 mmol/L (23-31); Cardiac Risk 4.5 (Less than 4.5); Chloride 103 mmol/L (98-107); Cholesterol 154 mg/dl (< 200 Desired); Glucose 161 mg/dL (80-115); HDL Cholesterol 34 mg/dL (>60 Neg Risk); LDL Cholesterol, Calculated 98 mg/dL; Potassium 4.4 mmol/L (3.5-5.1); Sodium 134 mmol/L (136-145); Triglycerides 108 mg/dL (Less than 150)
[2021-03-04] MEDS ORDERED: Dextrose 50% Abboject 50 ML SYRINGE SLOW IVP PRN (07:29)
[2021-03-04] MEDS ORDERED: Dextrose 5% in Water 1,000 ML IV PRN (07:29)
[2021-03-04] MEDS ORDERED: HumaLOG 300 UNITS/3 ML VIAL SC PRN ×2 (07:29)
[2021-03-04] MEDS ORDERED: Aspirin Chewable 81 MG TAB PO SCH (09:00)
[2021-03-04] MEDS ORDERED: Regadenoson 0.4 MG/5 ML SYRINGE ONE (11:55)
[2021-03-04 12:19] VITALS: BP 123/70; TEMP 97.3
[2021-03-04] MEDS: Famotidine 20 MG TAB PO SCH (12:35)
[2021-03-04] MEDS: Nicotine 14 MG PATCH TD SCH (12:40)
== END 2021-03-04 14:45 | disposition home or self-care (01) ==
LOC: ERS 09:54 → 2SW 11:19
PROVIDERS: ADMIT Internal Medicine; ATTEND Nurse Practitioner Family
DX: R07.89 Other chest pain (principal); I25.10 Atherosclerotic heart disease of native coronary artery without angina pectoris; E11.9 Type 2 diabetes mellitus without complications; F17.210 Nicotine dependence, cigarettes, uncomplicated; F12.10 Cannabis abuse, uncomplicated; E78.5 Hyperlipidemia, unspecified; I45.10 Unspecified right bundle-branch block; J44.9 Chronic obstructive pulmonary disease, unspecified; K21.9 Gastro-esophageal reflux disease without esophagitis; E78.00 Pure hypercholesterolemia, unspecified; Z91.14 Patient's other noncompliance with medication regimen; Z95.1 Presence of aortocoronary bypass graft; Z20.822 Contact with and (suspected) exposure to COVID-19
CPT/HCPCS: 71045; 78452; 80048; 80053; 80061; 80306; 83036; 83690; 83735; 83880; 84484 ×2; 85025 ×2; 93005; 93017; 94760; A9500; U0003; U0005; 36415; G0378; J2785

== ENCOUNTER 2021-07-14 13:26 | Inpatient (IN) | payer MEDICARE, MEDICAID ==
[2021-07-14] MEDS ORDERED: Acetaminophen 500 MG TAB ONE (14:08)
[2021-07-14 14:23] LABS: Mean Corpuscular HGB CONC 33.8 g/dL (32.0-36.0); Mean Corpuscular Hemoglobin 30.2 pg (27.0-31.0); Mean Corpuscular Volume 89.4 fL (78.0-98.0); RBC Distribution Width 13.9 % (11.5-14.5); White Blood Cell (WBC) Count 13.1 thou/uL (4.8-10.8)
[2021-07-14 14:36] LABS: Band 28 % (5-11); Large Platelets SLIGHT; Lymphocytes 4 % (21-51); MDiff Complete? YES; Metamyelocyte 4 % (0-0); Monocytes 5 % (0-10); Neutrophil 58 % (42-75); Platelet Count 61 thou/uL (130-400); Platelet Morphology Comment Appears Decreased; RBC Morphology Normal; Vacuoles SLIGHT
[2021-07-14 14:40] LABS: ALT (SGPT) 41 U/L (8-55); AST (SGOT) 52 U/L (5-34); Albumin 3.4 g/dL (3.4-4.8); Alkaline Phosphatase 108 U/L (40-110); Anion Gap 14 mmol/L (10-20); BUN (Urea Nitrogen) 14 mg/dL (8.4-25.7); Bilirubin, Total 1.6 mg/dL (0.2-1.2); Calc. Creatinine Clearance 0 mL/min (70-130); Carbon Dioxide 21 mmol/L (23-31); Chloride 90 mmol/L (98-107); Globulin 2.8 g/dL (2.4-3.5); Glucose 257 mg/dL (80-115); Lipase 11 U/L (8-78); Potassium 3.8 mmol/L (3.5-5.1); Protein, Total 6.2 g/dL (5.8-8.1); Sodium 121 mmol/L (136-145)
[2021-07-14 15:10] LABS: SARS-CoV-2 NAA Rapid Test Not Detected (NotDetected)
[2021-07-14] MEDS ORDERED: Cefepime 2 GM VIAL ONE (15:21)
[2021-07-14] MEDS ORDERED: Vancomycin 1 GM/200 ML BAG ONE (15:21)
[2021-07-14 15:54] LABS: Bilirubin Negative (Negative); Blood, Urine 2+ (Negative); Clarity Clear (Clear); Glucose, Urine (Dipstick) Greater than 1000 mg/dL (Negative); Ketone, Urine Trace mg/dL (Negative); Leukocyte Negative Leu/uL (Negative); Mucous/LPF Rare LPF (<2+); Nitrite Negative (Negative); Protein, Urine (Dipstick) 100 mg/dL (Neg-Trace); RBC/HPF 0-3 HPF (0-3); Specific Gravity, Urine 1.025 (1.002-1.036); Squamous Epithelial None Seen HPF (0-3); WBC/HPF 0-3 HPF (0-3)
[2021-07-14 16:09] LABS: Bacteria/HPF Rare-Few HPF (None Seen)
[2021-07-14] MEDS ORDERED: Ondansetron PF 4 MG/2 ML Vial IVP PRN (16:40)
[2021-07-14] MEDS ORDERED: HYDROcodone/Acetaminophen 5/325 mg Tablet PO PRN (16:40)
[2021-07-14] MEDS ORDERED: Sodium Chloride 0.9% 1,000 ML IV SCH (16:45)
[2021-07-14] MEDS ORDERED: Piperacillin/Tazobactam 3.375 GM in Sodium Chloride 0.9% 100 ML IVPB SCH (17:00)
[2021-07-14] MEDS ORDERED: Dextrose 5% in Water 1,000 ML IV PRN (17:01)
[2021-07-14] MEDS ORDERED: Dextrose 50% Abboject 50 ML SYRINGE SLOW IVP PRN (17:01)
[2021-07-14] MEDS: Dextrose 5 %-0.45 % NaCl 1,000 ML IV SCH (17:24)
[2021-07-14 18:09] VITALS: BMI 27.4
[2021-07-14 18:14] LABS: Lactic Acid 2.7 mmol/L (0.5-2.2)
[2021-07-14 20:09] LABS: Anion Gap 14 mmol/L (10-20); Carbon Dioxide 19 mmol/L (23-31); Chloride 96 mmol/L (98-107); Sodium 125 mmol/L (136-145)
[2021-07-14] MEDS: HumaLOG 300 UNITS/3 ML VIAL SC PRN (20:19)
[2021-07-14] MEDS: Piperacillin/Tazobactam 3.375 GM in Sodium Chloride 0.9% 100 ML IVPB SCH (20:19)
[2021-07-14] MEDS ORDERED: Piperacillin/Tazobactam 4.5 GM in Sodium Chloride 0.9% 100 ML IVPB SCH (22:00)
[2021-07-14 22:02] LABS: Troponin I 0.021 ng/mL (< 0.028)
[2021-07-15] MEDS: Dextrose 5 %-0.45 % NaCl 1,000 ML IV SCH (02:20)
[2021-07-15] MEDS: Piperacillin/Tazobactam 3.375 GM in Sodium Chloride 0.9% 100 ML IVPB SCH (03:55)
[2021-07-15 05:36] LABS: Anion Gap 13 mmol/L (10-20); BUN (Urea Nitrogen) 14 mg/dL (8.4-25.7); Calc. Creatinine Clearance 87 mL/min (70-130); Calcium 7.1 mg/dL (7.8-10.44); Carbon Dioxide 22 mmol/L (23-31); Chloride 91 mmol/L (98-107); Glucose 227 mg/dL (80-115); Potassium 3.5 mmol/L (3.5-5.1); Sodium 122 mmol/L (136-145)
[2021-07-15] MEDS: HumaLOG 300 UNITS/3 ML VIAL SC PRN ×3 (05:39→20:28)
[2021-07-15 05:42] LABS: Hemoglobin 14.7 g/dL (14.0-18.0); Mean Corpuscular HGB CONC 33.6 g/dL (32.0-36.0); Mean Corpuscular Hemoglobin 30.6 pg (27.0-31.0); Mean Corpuscular Volume 91.2 fL (78.0-98.0); Platelet Count 25 thou/uL (130-400); RBC Distribution Width 13.9 % (11.5-14.5); Red Blood Cell (RBC) Count 4.81 mill/uL (4.70-6.10); White Blood Cell (WBC) Count 11.3 thou/uL (4.8-10.8)
[2021-07-15 05:43] LABS: Band 41 % (5-11); Lymphocytes 5 % (21-51); MDiff Complete? YES; Monocytes 2 % (0-10); Neutrophil 52 % (42-75); Platelet Morphology Comment Appears Decreased; RBC Morphology Normal
[2021-07-15] MEDS ORDERED: Enoxaparin Sodium 40 MG/0.4 ML SYRINGE SC SCH (09:00)
[2021-07-15] MEDS ORDERED: Aspirin Chewable 81 MG TAB PO SCH (09:00)
[2021-07-15] MEDS ORDERED: Iopamidol 370 76% 100 ML VIAL ONE (09:14)
[2021-07-15 12:57] LABS: Anion Gap 13 mmol/L (10-20); BUN (Urea Nitrogen) 13 mg/dL (8.4-25.7); Calc. Creatinine Clearance 91 mL/min (70-130); Calcium 7.2 mg/dL (7.8-10.44); Carbon Dioxide 22 mmol/L (23-31); Chloride 90 mmol/L (98-107); Glucose 203 mg/dL (80-115); Potassium 3.5 mmol/L (3.5-5.1); Sodium 121 mmol/L (136-145)
[2021-07-15] MEDS: Acetaminophen 325 MG TAB PO PRN ×2 (16:17→23:26)
[2021-07-15 18:11] LABS: Anion Gap 12 mmol/L (10-20); BUN (Urea Nitrogen) 14 mg/dL (8.4-25.7); Calc. Creatinine Clearance 89 mL/min (70-130); Calcium 7.3 mg/dL (7.8-10.44); Carbon Dioxide 22 mmol/L (23-31); Chloride 92 mmol/L (98-107); Glucose 241 mg/dL (80-115); Potassium 3.3 mmol/L (3.5-5.1); Sodium 123 mmol/L (136-145)
[2021-07-15] MEDS ORDERED: Potassium Chloride 20 MEQ TAB PO SCH (20:00)
[2021-07-16 05:59] LABS: Band 56 % (5-11); Hemoglobin 16.6 g/dL (14.0-18.0); Lymphocytes 2 % (21-51); MDiff Complete? YES; Mean Corpuscular HGB CONC 33.3 g/dL (32.0-36.0); Mean Corpuscular Hemoglobin 30.4 pg (27.0-31.0); Mean Corpuscular Volume 91.2 fL (78.0-98.0); Monocytes 2 % (0-10); Neutrophil 40 % (42-75); Platelet Count 66 thou/uL (130-400); Platelet Morphology Comment Appears Decreased; RBC Distribution Width 14.2 % (11.5-14.5); RBC Morphology Normal; Red Blood Cell (RBC) Count 5.47 mill/uL (4.70-6.10); White Blood Cell (WBC) Count 12.6 thou/uL (4.8-10.8)
[2021-07-16] MEDS: HumaLOG 300 UNITS/3 ML VIAL SC PRN ×3 (06:01→21:00)
[2021-07-16 06:19] LABS: Hep C IgG Ab Non-Reactive (NonReactive); Hep C Index 0.06 S/CO (0-0.79)
[2021-07-16 06:20] LABS: Anion Gap 16 mmol/L (10-20); BUN (Urea Nitrogen) 15 mg/dL (8.4-25.7); Calc. Creatinine Clearance 88 mL/min (70-130); Calcium 7.5 mg/dL (7.8-10.44); Carbon Dioxide 20 mmol/L (23-31); Chloride 91 mmol/L (98-107); Glucose 164 mg/dL (80-115); Potassium 4.3 mmol/L (3.5-5.1); Sodium 123 mmol/L (136-145)
[2021-07-16 10:04] LABS: Anion Gap 16 mmol/L (10-20); BUN (Urea Nitrogen) 16 mg/dL (8.4-25.7); Calc. Creatinine Clearance 91 mL/min (70-130); Calcium 7.4 mg/dL (7.8-10.44); Carbon Dioxide 21 mmol/L (23-31); Chloride 91 mmol/L (98-107); Glucose 195 mg/dL (80-115); Magnesium 2.1 mg/dL (1.6-2.6); Potassium 3.9 mmol/L (3.5-5.1); Sodium 124 mmol/L (136-145)
[2021-07-16] MEDS ORDERED: Sodium Chloride 0.9% 1,000 ML IV SCH (11:45)
[2021-07-16] MEDS ORDERED: metroNIDAZOLE 500 MG in Premix Bag 1 BAG IVPB SCH (14:00)
[2021-07-16] MEDS ORDERED: cefTRIAXone\\ROCEPHIN 1 GM in Sodium Chloride 0.9% 100 ML IVPB SCH (15:00)
[2021-07-16 15:31] LABS: Anion Gap 16 mmol/L (10-20); BUN (Urea Nitrogen) 15 mg/dL (8.4-25.7); Calc. Creatinine Clearance 103 mL/min (70-130); Calcium 7.2 mg/dL (7.8-10.44); Carbon Dioxide 18 mmol/L (23-31); Chloride 92 mmol/L (98-107); Glucose 184 mg/dL (80-115); Sodium 122 mmol/L (136-145)
[2021-07-16 16:02] LABS: Complement-C4 10.3 mg/dL (15-53)
[2021-07-16 16:20] LABS: Ref Lab Test Ordered RICKETSIA IGG/M; Reference Lab Name LABCORP
[2021-07-16 16:21] LABS: Ref Lab Test Ordered EHRLICHIA IGG/M; Reference Lab Name LABCORP
[2021-07-16] MEDS ORDERED: Sodium Chloride 3% 500 ML IVPB SCH (17:15)
[2021-07-16 17:46] LABS: Anion Gap 17 mmol/L (10-20); BUN (Urea Nitrogen) 16 mg/dL (8.4-25.7); Calc. Creatinine Clearance 99 mL/min (70-130); Calcium 7.3 mg/dL (7.8-10.44); Carbon Dioxide 20 mmol/L (23-31); Chloride 91 mmol/L (98-107); Glucose 187 mg/dL (80-115); Potassium 4.1 mmol/L (3.5-5.1); Sodium 124 mmol/L (136-145)
[2021-07-16] MEDS: Acetaminophen 325 MG TAB PO PRN (20:14)
[2021-07-16 20:17] LABS: Sodium 121 mmol/L (136-145)
[2021-07-16] MEDS ORDERED: Doxycycline 100 MG CAP PO SCH (21:00)
[2021-07-16 23:15] LABS: Anion Gap 15 mmol/L (10-20); BUN (Urea Nitrogen) 19 mg/dL (8.4-25.7); Calc. Creatinine Clearance 90 mL/min (70-130); Calcium 7.1 mg/dL (7.8-10.44); Carbon Dioxide 19 mmol/L (23-31); Chloride 94 mmol/L (98-107); Glucose 172 mg/dL (80-115); Potassium 3.8 mmol/L (3.5-5.1); Sodium 124 mmol/L (136-145)
[2021-07-17] MEDS: HumaLOG 300 UNITS/3 ML VIAL SC PRN (06:01)
[2021-07-17 06:21] LABS: HIV (1/2) Antibody/Antigen Non-Reactive (NonReactive); HIV 1/2 INDEX 0.15 S/CO (<1.00)
[2021-07-17 06:54] LABS: Sodium 124 mmol/L (136-145)
[2021-07-17 06:59] LABS: Anion Gap 19 mmol/L (10-20); BUN (Urea Nitrogen) 20 mg/dL (8.4-25.7); Calc. Creatinine Clearance 99 mL/min (70-130); Calcium 7.5 mg/dL (7.8-10.44); Carbon Dioxide 20 mmol/L (23-31); Chloride 92 mmol/L (98-107); Glucose 154 mg/dL (80-115); Potassium 3.7 mmol/L (3.5-5.1); Sodium 127 mmol/L (136-145)
[2021-07-17 07:09] LABS: Band 17 % (5-11); Hemoglobin 17.6 g/dL (14.0-18.0); Lymphocytes 4 % (21-51); MDiff Complete? YES; Mean Corpuscular Volume 90.9 fL (78.0-98.0); Mean Platelet Volume 10.2 fL (7.4-10.4); Monocytes 4 % (0-10); Neutrophil 75 % (42-75); Platelet Count 58 thou/uL (130-400); Platelet Morphology Comment Appears Decreased; Polychromasia SLIGHT = 2-3 cells (100X) (0-2/hpf); RBC Distribution Width 14.4 % (11.5-14.5); Red Blood Cell (RBC) Count 5.88 mill/uL (4.70-6.10); White Blood Cell (WBC) Count 14.5 thou/uL (4.8-10.8)
[2021-07-17 07:42] VITALS: TEMP 99.4
[2021-07-17] MEDS ORDERED: Loperamide HCl 1 MG/7.5 ML UDCUP PO PRN (08:31)
[2021-07-17 08:33] VITALS: BP 101/60
[2021-07-17] MEDS ORDERED: Sodium Chloride 3% 500 ML IVPB SCH (09:15)
[2021-07-18 11:52] LABS: ANA Symphony (Qualitative) Negative (Negative); ANA Symphony (Quantitative) 0.1 Ratio (< 0.7 Negative); dsDNA IgG Antibody 0.7 IU/mL (<10 Negative)
[2021-07-19 12:16] LABS: Bartonella henselae IgG Negative titer (Neg:<1:320); Bartonella henselae IgM Negative titer (Neg:<1:100); Bartonella quintana IgG Negative titer (Neg:<1:320); Bartonella quintana IgM Negative titer (Neg:<1:100)
== END 2021-07-17 10:25 | disposition left against medical advice (07) | DRG 872 ==
LOC: ERS 13:26 → NEURO 15:37
PROVIDERS: ADMIT Internal Medicine; ATTEND Internal Medicine
DX: A41.9 Sepsis, unspecified organism (principal); E87.1 Hypo-osmolality and hyponatremia; D69.3 Immune thrombocytopenic purpura; E87.2 Acidosis; Z20.822 Contact with and (suspected) exposure to COVID-19; D46.9 Myelodysplastic syndrome, unspecified; E78.00 Pure hypercholesterolemia, unspecified; I25.10 Atherosclerotic heart disease of native coronary artery without angina pectoris; J44.9 Chronic obstructive pulmonary disease, unspecified; E11.9 Type 2 diabetes mellitus without complications; F17.210 Nicotine dependence, cigarettes, uncomplicated; N18.2 Chronic kidney disease, stage 2 (mild); I12.9 Hypertensive chronic kidney disease with stage 1 through stage 4 chronic kidney disease, or unspecified chronic kidney disease; D63.1 Anemia in chronic kidney disease; B34.9 Viral infection, unspecified; Z91.14 Patient's other noncompliance with medication regimen; Z95.1 Presence of aortocoronary bypass graft; Z79.899 Other long term (current) drug therapy; Z79.82 Long term (current) use of aspirin
CPT/HCPCS: 36415; 36416; 71045; 71260; 74177; 80048; 80053; 81003; 81015; 82533; 83605; 83630; 83690; 83735; 83880; 83930; 83935; 84300; 84443; 84450; 84484; 85025; 86038; 86160; 86225; 86611; 86704; 86705; 86706; 86707; 86803; 87040; 87045; 87046; 87086; 87324; 87340; 87350; 87389; 87427; 87449; 87521; 88184; 88185; 93005; 93010; J0692; J0696; J0744; J1815; J2543; J3370; J3490; J7042; J7050; J7131; Q9967

== ENCOUNTER 2021-10-02 14:19 | Outpatient (CLI) | payer OTHER | END 2021-10-02 14:20 | disposition home or self-care (01) | LOC: DTY/OP 14:19 | PROVIDERS: ATTEND Psychiatry & Neurology Psychiatry | DX: E11.42 Type 2 diabetes mellitus with diabetic polyneuropathy (principal); Z71.3 Dietary counseling and surveillance | CPT/HCPCS: 97802 ==

== ENCOUNTER 2022-02-04 13:32 | Outpatient (CLI) | payer OTHER, MEDICAID | END 2022-02-04 13:33 | disposition home or self-care (01) | LOC: MRI 13:32 | PROVIDERS: ATTEND Family Medicine | DX: M47.816 Spondylosis without myelopathy or radiculopathy, lumbar region (principal); M48.062 Spinal stenosis, lumbar region with neurogenic claudication; G89.4 Chronic pain syndrome; M48.07 Spinal stenosis, lumbosacral region; M51.36 Other intervertebral disc degeneration, lumbar region; M51.37 Other intervertebral disc degeneration, lumbosacral region; M47.817 Spondylosis without myelopathy or radiculopathy, lumbosacral region | CPT/HCPCS: 72148 ==